=== PATIENT | female | born 1930 | race Caucasian/White ===

== ENCOUNTER 2017-01-01 17:31 | Emergency (ER) | payer OTHER, MEDICAID ==
[2017-01-01 17:44] VITALS: BMI 26.0
--- NOTE | 2017-01-01 17:51 | CT ---
History: Seizures Study: Multi party planner CT head without contrast Comparison: August 07, 2016 Findings: There is an old infarct in the left occipital lobe medially and a small old infarct program paraprofessional iorly in the left parietal lobe. There is no intracranial hemorrhage or mass. There is no subdural c ollection of fluid. There are prominent subarachnoid spaces. The calvarium is intact and the sinuses are clear. Impression: Unchanged left posterior parietal and left occipital old infarcts, no acute intracranial disease Reported By:
--- NOTE | 2017-01-01 17:59 | DR.GENAD ---
HPI - PCP Primary Care Physician: daren - Complaint/Symptoms Chief Complaint Doctors Comments: Patient with a history of facial twitches described as seizures. She began. having seizures s/p her first stroke. She is on dilantin for seizure prevention. She is on multiple antiplatelet medications. Chief Complaint:: ems stated that patient has had 5 seizures in the past 45 minutes. family states that when the patient has had seizures in the past, it has been associated with her strokes - Source History Provided: Family Member, EMS - Mode of Arrival Mode of Arrival: EMS - Timing Onset of Chief Complaint: 01/01/17 PMH - PMH Past Medical History: Yes Past Medical History: Anxiety, Arthritis, CVA, Depression, Dyslipidemia, Hypertension Past Surgical History: Yes Surgical History: Cholecystectomy - Family History History of Family Medical Conditions: Yes Family Medical History: Diabetes Mellitus, Cancer, [place], Coronary Artery Disease, Heart Failure, Hypertension - Social History Does patient currently use any type of tobacco product: Yes Have you used tobacco products in the last 12 months: Yes Type of Tobacco Use: Cigarettes Does any household member use tobacco: No Do you use any recreational Drugs:: No Lives With: Family Lives Where: Home - infectious screening In the last 2 months have you had wt loss of >10#?: NO Have you had fever, night sweats or hemotysis?: No Have you traveled outside the country in the last 6 months?: No Isolation: Standard ROS - Review of Systems Constitutional: No Symptoms Reported. negative: Diaphoresis Eyes: No Symptoms Reported ENTM: No Symptoms Reported Respiratoy: No Symptoms Reported Cardiovascular: No Symptoms Reported Gastrointestinal/Abdominal: No Symptoms Reported Genitourinary: No Symptoms Reported Neurological: No Symptoms Reported Musculoskeletal: No Symptoms Reported Integumentary: No Symptoms Reported Hematologic/Lymphatic: No Symptoms Reported Endocrine: No Symptoms Reported Psychiatric: No Symptoms Reported All Other Systems: Reviewed and Negative PE - Vital Signs Vitals: Temperature 97.8 F Pulse Rate [Right Radial] 86 Pulse Rate 84 Respiratory Rate 20 Blood Pressure [Right Arm] 179/84 Blood Pressure [Left Arm] 173/74 Blood Pressure 224/89 O2 Sat by Pulse Oximetry 98 - General Limitations: No Limitations General Appearance: Alert, In No Apparent Distress - Head Head Exam: Normal Inspection, Atraumatic - Eyes Eye exam: Normal Appearance, PERRL, EOMI - ENT ENT Exam: Normal Exam, Normal Oropharynx External Ear Exam: Normal External Inspection TM/Canal Exam: Bilateral Normal Nose Exam: Normal Nose Exam Mouth Exam: Normal Inspection Throat Exam: Normal Inspection - Neck Neck Exam: Normal Inspection - Chest Chest Inspection: Normal Inspection - Respiratory Respiratory Exam: Normal Lung Sounds Bilat Respiratory Exam: Bilateral Clear to Auscultation - Cardiovascular Cardiovascular Exam: Regular Rate, Normal Rhythm - Abdominal Exam Abdominal Exam: Normal Inspection Abdominal Tenderness: negative: RUQ, RLQ, LUQ, LLQ, Epigastrium, Suprapubic, Diffuse, Mild, Moderate, Severe, Other - Extremities Extremities Exam: Normal Inspection, Full ROM - Back Back Exam: Normal Inspection - Neurologic Neurological Exam: Alert, Oriented X3, CN II-XII Intact - Psychiatric Psychiatric Exam: Normal Affect, Normal Mood - Skin Skin Exam: Warm, Dry, Intact ROR - Labs Reviewed Result Diagrams: 01/01/17 17:45 01/01/17 17:45 Laboratory: WBC 5.7 X10^3/uL (3.6-10.0) 01/01/17 17:45 RBC 3.96 X10^6/uL (3.5-5.4) 01/01/17 17:45 Hgb 11.6 g/dL (12.0-16.0) L 01/01/17 17:45 Hct 35.5 % (36.0-47.0) L 01/01/17 17:45 MCV 89.6 fL (80.0-100.0) 01/01/17 17:45 MCH 29.2 pg (27.0-34.0) 01/01/17 17:45 MCHC 32.6 g/dL (33.0-35.0) L 01/01/17 17:45 RDW 13.4 % (11.6-16.5) 01/01/17 17:45 Plt Count 188 X10^3/uL (150.0-450.0) 01/01/17 17:45 MPV 9.0 fL (7.4-11.0) 01/01/17 17:45 Neut % 59.0 % (42.0-75.0) 01/01/17 17:45 Lymph % 27.7 % (21.0-51.0) 01/01/17 17:45 [place] % 9.8 % (0.0-13.0) 01/01/17 17:45 Eos % 2.6 % (0.9-2.9) 01/01/17 17:45 Baso % 0.9 % (0.2-1.0) 01/01/17 17:45 Neut # 3.4 x10^3/uL (2.2-4.8) 01/01/17 17:45 Lymph # 1.6 X10^3/uL (1.3-2.9) 01/01/17 17:45 [place] # 0.6 x10^3/uL (0.3-0.8) 01/01/17 17:45 Eos # 0.1 x10^3/uL (0.0-0.2) 01/01/17 17:45 Baso # 0.1 X10^3/uL (0.0-0.1) 01/01/17 17:45 Absolute Nucleated RBC 0.0 /100WBC 01/01/17 17:45 Sodium 139 mmol/L (136-145) 01/01/17 17:45 Corrected Sodium 141 mmol/L (136-145) 01/01/17 17:45 Potassium 4.5 mmol/L (3.5-5.1) 01/01/17 17:45 Chloride 105 mmol/L (98-107) 01/01/17 17:45 Carbon Dioxide 26.7 mmol/L (21-32) 01/01/17 17:45 BUN 5 mg/dL (7-18) L 01/01/17 17:45 Creatinine 0.83 mg/dL (0.55-1.02) 01/01/17 17:45 Est GFR (MDRD) Af Amer > 60 (>60) 01/01/17 17:45 Est GFR (MDRD) Non-Af > 60 (>60) 01/01/17 17:45 Glucose 171 mg/dL (65-99) H 01/01/17 17:45 Calcium 8.4 mg/dL (8.5-10.1) L 01/01/17 17:45 Corrected Calcium 9.0 mg/dL (8.5-10.1) 01/01/17 17:45 Total Bilirubin 0.20 mg/dL (0.2-1.0) 01/01/17 17:45 AST 20 Units/L (15-37) 01/01/17 17:45 ALT 21 Units/L (12-78) 01/01/17 17:45 Alkaline Phosphatase 172 Units/L (46-116) H 01/01/17 17:45 Total Protein 6.6 g/dL (6.4-8.2) 01/01/17 17:45 Albumin 3.2 g/dL (3.4-5.0) L 01/01/17 17:45 Globulin 3.4 g/dL (2.5-4.5) 01/01/17 17:45 Albumin/Globulin Ratio 0.9 Ratio (1.1-2.1) L 01/01/17 17:45 Phenytoin 11.5 ug/mL (10-20) 01/01/17 17:45 - XRAY XRAY Interpreted by: Radiologist (CT Brain: Unchanged left posterior parietal and left occipital old infarcts, no acute intracranial disease.) - Diagnosis Discharge Problem: Seizure, 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
[2017-01-01 18:10] LABS: BASOPHILS # (AUTO) 0.1 X10^3/uL (0.0-0.1); BASOPHILS % (AUTO) 0.9 % (0.2-1.0); EOSINOPHILS # (AUTO) 0.1 x10^3/uL (0.0-0.2); EOSINOPHILS % (AUTO) 2.6 % (0.9-2.9); HEMATOCRIT 35.5 % (36.0-47.0); HEMOGLOBIN 11.6 g/dL (12.0-16.0); LYMPHOCYTES # (AUTO) 1.6 X10^3/uL (1.3-2.9); LYMPHOCYTES % (AUTO) 27.7 % (21.0-51.0); MEAN CORPUSCULAR HEMOGLOBIN 29.2 pg (27.0-34.0); MEAN CORPUSCULAR HGB CONC 32.6 g/dL (33.0-35.0); MEAN CORPUSCULAR VOLUME 89.6 fL (80.0-100.0); MONOCYTES # (AUTO) 0.6 x10^3/uL (0.3-0.8); MONOCYTES % (AUTO) 9.8 % (0.0-13.0); NEUTROPHILS # (AUTO) 3.4 x10^3/uL (2.2-4.8); PLATELET COUNT 188 X10^3/uL (150.0-450.0); RED BLOOD COUNT 3.96 X10^6/uL (3.5-5.4); RED CELL DISTRIBUTION WIDTH 13.4 % (11.6-16.5); WHITE BLOOD COUNT 5.7 X10^3/uL (3.6-10.0)
[2017-01-01 18:12] LABS: ALANINE AMINOTRANSFERASE 21 Units/L (12-78); ALBUMIN 3.2 g/dL (3.4-5.0); ALKALINE PHOSPHATASE 172 Units/L (46-116); ASPARTATE AMINO TRANSFERASE 20 Units/L (15-37); BLOOD UREA NITROGEN 5 mg/dL (7-18); CALCIUM 8.4 mg/dL (8.5-10.1); CARBON DIOXIDE 26.7 mmol/L (21-32); CHLORIDE 105 mmol/L (98-107); COR NA(FOR HYPERGLY) 141 mmol/L (136-145); CREATININE 0.83 mg/dL (0.55-1.02); GLUCOSE 171 mg/dL (65-99); SODIUM 139 mmol/L (136-145); TOTAL PROTEIN 6.6 g/dL (6.4-8.2); eGFR BLACK RACES > 60 (>60); eGFR NON BLACK RACES > 60 (>60)
[2017-01-01] MEDS ORDERED: CATAPRES TAB 0.1 MG ONE (18:38)
[2017-01-01] MEDS ORDERED: CATAPRES TAB 0.1 MG PO ONE (18:39)
[2017-01-01 19:03] VITALS: BP 171/81
[2017-01-01 19:03] LABS: BILIRUBIN,URINE NEGATIVE (NEGATIVE); BLOOD/HEMOGLOBIN,URINE NEGATIVE (NEGATIVE); GLUCOSE, URINE NEGATIVE (NEGATIVE); KETONES,URINE NEGATIVE (NEGATIVE); LEUKOCYTE ESTERASE ,URINE NEGATIVE (NEGATIVE); NITRITES,URINE NEGATIVE (NEGATIVE); PROTEIN,URINE 1+ (NEGATIVE); UROBILINOGEN,URINE NORMAL (NORMAL)
[2017-01-01 19:16] LABS: AMORPHOUS SEDIMENT,UR 1+ /HPF (NEGATIVE); APPEARANCE,URINE CLEAR (CLEAR); BACTERIA,URINE TRACE /HPF (NEGATIVE); COLOR,URINE YELLOW (YELLOW); RBC,URINE 0-1 /HPF (NEGATIVE); SQUAMOUS EPITHELIAL CELL,UR RARE /HPF (NEGATIVE)
== END 2017-01-01 19:27 | disposition home or self-care (01) ==
LOC: ER 17:31
DX: R56.9 Unspecified convulsions (principal); I69.328 Other speech and language deficits following cerebral infarction
CPT/HCPCS: 36415; 70450; 80053; 80185; 81001; 85025; 99283

== ENCOUNTER 2017-05-15 01:53 | Inpatient (IN) | payer OTHER, MEDICAID ==
--- NOTE | 2017-05-15 02:22 | DR.GENAD ---
HPI - PCP Primary Care Physician: daren - HPI Comment HPI Comment: REPEATED SEIZURE IN ED WELL. TAKES DILANTIN AND DEPAKOTE AND IS COMPLIANT WITH MEDICATIONS. NO FEVER, BP NOTED TO BE GILBERTO.DENIES HEADACHE. - Complaint/Symptoms Chief Complaint Doctors Comments: SEIZURE AT HOME TONIGHT. Chief Complaint:: pt woke up and told family she thought she had a seizure, - Nurses notes reviewed Nurses Notes Review: Yes - Source History Provided: Patient - Mode of Arrival Mode of Arrival: EMS - Timing Onset of Chief Complaint: 05/15/17 Came on: Suddenly - Duration Duration: Since Onset Duration: Hours - Severity Severity: Moderate PMH - PMH Past Medical History: Yes Past Medical History: Anxiety, Arthritis, CVA, Depression, Dyslipidemia, Hypertension, Seizures Past Surgical History: Yes Surgical History: Cholecystectomy - Family History History of Family Medical Conditions: Yes Family Medical History: Diabetes Mellitus, Cancer, [place], Coronary Artery Disease, Heart Failure, Hypertension - Social History Does patient currently use any type of tobacco product: Yes Have you used tobacco products in the last 12 months: Yes Type of Tobacco Use: Cigarettes Does any household member use tobacco: Yes Alcohol Use: None Do you use any recreational Drugs:: No Lives With: Family Lives Where: Home - infectious screening In the last 2 months have you had wt loss of >10#?: NO Have you had fever, night sweats or hemotysis?: No Have you traveled outside the country in the last 6 months?: No Isolation: Standard ROS - Review of Systems Constitutional: Weakness, Fatigue Eyes: Blurred Vision ENTM: No Symptoms Reported. negative: Ear Pain, Nose Discharge, Nose Congestion , Throat Pain Respiratoy: Short of Breath. negative: Non-Productive Cough, Dry Cough, Wheezing, Hemoptysis Cardiovascular: Edema. negative: Chest Pain Gastrointestinal/Abdominal: Nausea. negative: Abdominal Pain Genitourinary: negative: Dysuria, Hematuria Neurological: Headache, Seizure Musculoskeletal: Muscle Pain Integumentary: Change in Color Hematologic/Lymphatic: Easy Bleeding, Easy Bruising Endocrine: No Symptoms Reported All Other Systems: Reviewed and Negative Unable to Obtain Due To: Altered mental status PE - Vital Signs Vitals: Temperature 98.3 F Pulse Rate [Apical] 50 Pulse Rate 67 Respiratory Rate 22 Blood Pressure [Right Arm] 202/95 Blood Pressure [Left Arm] 173/74 Blood Pressure 223/104 O2 Sat by Pulse Oximetry 100 - General Limitations: Altered Mental Status General Appearance: Alert - Head Head Exam: Normal Inspection - Eyes Eye exam: Normal Appearance - ENT ENT Exam: Normal External Ear Exam External Ear Exam: Normal External Inspection TM/Canal Exam: Bilateral Normal Nose Exam: Normal Nose Exam Mouth Exam: Normal Inspection Throat Exam: Normal Inspection - Neck Neck Exam: Trachea Midline - Chest Chest Inspection: Symmetric Chest Wall Rise - Respiratory Respiratory Exam: Normal Lung Sounds Bilat Respiratory Exam: Bilateral Rhonchi, Lower Rhonchi - Cardiovascular Cardiovascular Exam: Regular Rate, Normal Rhythm, Normal Heart Sounds - Abdominal Exam Abdominal Exam: Normal Bowel Sounds, Soft. negative: Tenderness - Extremities Extremities Exam: Normal Inspection - Back Back Exam: Paraspinal Tenderness - Neurologic Neurological Exam: Oriented X3 - Psychiatric Psychiatric Exam: Anxious - Skin Skin Exam: Normal Color MDM - Additional Information Additional Information Obtained From: Family - Differential Diagnosis Differential Diagnosis: REPEATED SEIZURE, HYPERTENSION Course - Treatment Treatment: SEE ORDERS - Education/Counseling Education/Counseling: Patient, Family, Education Educated On: Treatment, Diagnosis, Needs for Follow Up ROR - Labs Reviewed Laboratory Results Reviewed?: Yes Result Diagrams: 05/15/17 02:10 05/15/17 02:10 Laboratory: WBC 3.6 X10^3/uL (3.6-10.0) 05/15/17 02:10 RBC 3.98 X10^6/uL (3.5-5.4) 05/15/17 02:10 Hgb 11.8 g/dL (12.0-16.0) L 05/15/17 02:10 Hct 35.9 % (36.0-47.0) L 05/15/17 02:10 MCV 90.0 fL (80.0-100.0) 05/15/17 02:10 MCH 29.6 pg (27.0-34.0) 05/15/17 02:10 MCHC 32.9 g/dL (33.0-35.0) L 05/15/17 02:10 RDW 14.3 % (11.6-16.5) 05/15/17 02:10 Plt Count 144 X10^3/uL (150.0-450.0) L 05/15/17 02:10 MPV 8.9 fL (7.4-11.0) 05/15/17 02:10 Neut % 30.4 % (42.0-75.0) L 05/15/17 02:10 Lymph % 53.4 % (21.0-51.0) H 05/15/17 02:10 [place] % 10.8 % (0.0-13.0) 05/15/17 02:10 Eos % 4.2 % (0.9-2.9) H 05/15/17 02:10 Baso % 1.2 % (0.2-1.0) H 05/15/17 02:10 Neut # 1.1 x10^3/uL (2.2-4.8) L 05/15/17 02:10 Lymph # 1.9 X10^3/uL (1.3-2.9) 05/15/17 02:10 [place] # 0.4 x10^3/uL (0.3-0.8) 05/15/17 02:10 Eos # 0.2 x10^3/uL (0.0-0.2) 05/15/17 02:10 Baso # 0.0 X10^3/uL (0.0-0.1) 05/15/17 02:10 Absolute Nucleated RBC 0.0 /100WBC 05/15/17 02:10 Sodium 139 mmol/L (136-145) 05/15/17 02:10 Corrected Sodium TNP 05/15/17 02:10 Potassium 4.2 mmol/L (3.5-5.1) 05/15/17 02:10 Chloride 103 mmol/L (98-107) 05/15/17 02:10 Carbon Dioxide 30.0 mmol/L (21-32) 05/15/17 02:10 BUN 10 mg/dL (7-18) 05/15/17 02:10 Creatinine 0.88 mg/dL (0.55-1.02) 05/15/17 02:10 Est GFR (MDRD) Af Amer > 60 (>60) 05/15/17 02:10 Est GFR (MDRD) Non-Af > 60 (>60) 05/15/17 02:10 Glucose 86 mg/dL (65-99) 05/15/17 02:10 Calcium 8.3 mg/dL (8.5-10.1) L 05/15/17 02:10 Corrected Calcium TNP 05/15/17 02:10 Total Bilirubin 0.20 mg/dL (0.2-1.0) 05/15/17 02:10 AST 22 Units/L (15-37) 05/15/17 02:10 ALT 23 Units/L (12-78) 05/15/17 02:10 Alkaline Phosphatase 185 Units/L (46-116) H 05/15/17 02:10 Creatine Kinase 53 Units/L (26-192) 05/15/17 02:10 CK-MB (CK-2) 1.7 ng/mL (0-4.0) 05/15/17 02:10 CK/CKMB % Calc 3.2 % (<4) 05/15/17 02:10 Troponin I 0.03 ng/mL (0-1.5) 05/15/17 02:10 Total Protein 6.8 g/dL (6.4-8.2) 05/15/17 02:10 Albumin 3.4 g/dL (3.4-5.0) 05/15/17 02:10 Globulin 3.4 g/dL (2.5-4.5) 05/15/17 02:10 Albumin/Globulin Ratio 1.0 Ratio (1.1-2.1) L 05/15/17 02:10 Specimen Type Random urine 05/15/17 03:54 Urine Color Yellow (YELLOW) 05/15/17 03:54 Urine Appearance Clear (CLEAR) 05/15/17 03:54 Urine pH 7.0 (5.0 - 8.0) 05/15/17 03:54 Ur Specific [place] 1.010 (1.000-1.030) 05/15/17 03:54 Urine Protein 1+ (NEGATIVE) 05/15/17 03:54 Urine Glucose (UA) Negative (NEGATIVE) 05/15/17 03:54 Urine Ketones Negative (NEGATIVE) 05/15/17 03:54 Urine Occult Blood Negative (NEGATIVE) 05/15/17 03:54 Urine Nitrite Negative (NEGATIVE) 05/15/17 03:54 Urine Bilirubin Negative (NEGATIVE) 05/15/17 03:54 Urine Urobilinogen Normal (NORMAL) 05/15/17 03:54 Ur Leukocyte Esterase 1+ (NEGATIVE) 05/15/17 03:54 Urine RBC 0-3 /HPF (NEGATIVE) 05/15/17 03:54 Urine WBC 0-3 /HPF (NEGATIVE) 05/15/17 03:54 Ur Squamous Epith Cells Few /HPF (NEGATIVE) 05/15/17 03:54 Urine Bacteria Negative /HPF (NEGATIVE) 05/15/17 03:54 Ur Culture Indicated? No/not indicated 05/15/17 03:54 Phenytoin 10.5 ug/mL (10-20) 05/15/17 02:10 Valproic Acid 32.3 ug/mL (50-100) L 05/15/17 02:10 - XRAY XRAY Interpreted by: Radiologist XRAY Findings: REPORT DISCUSS WITH PATIENT. - EKG Rhythm: NSR (EKG NOTED) - Diagnosis Discharge Problem: Seizure Hypertension Qualifiers: Hypertension type: essential hypertension Qualified Code(s): I10 - Essential ( primary) hypertension - Discharge Plan Disposition: ADMITTED INPATIENT Condition: Stable - Follow ups/Referrals - Instructions
[2017-05-15 02:28] LABS: BASOPHILS % (AUTO) 1.2 % (0.2-1.0); EOSINOPHILS # (AUTO) 0.2 x10^3/uL (0.0-0.2); EOSINOPHILS % (AUTO) 4.2 % (0.9-2.9); HEMATOCRIT 35.9 % (36.0-47.0); HEMOGLOBIN 11.8 g/dL (12.0-16.0); LYMPHOCYTES # (AUTO) 1.9 X10^3/uL (1.3-2.9); LYMPHOCYTES % (AUTO) 53.4 % (21.0-51.0); MEAN CORPUSCULAR HEMOGLOBIN 29.6 pg (27.0-34.0); MEAN CORPUSCULAR HGB CONC 32.9 g/dL (33.0-35.0); MEAN PLATELET VOLUME 8.9 fL (7.4-11.0); MONOCYTES # (AUTO) 0.4 x10^3/uL (0.3-0.8); MONOCYTES % (AUTO) 10.8 % (0.0-13.0); NEUTROPHILS # (AUTO) 1.1 x10^3/uL (2.2-4.8); NEUTROPHILS % (AUTO) 30.4 % (42.0-75.0); PLATELET COUNT 144 X10^3/uL (150.0-450.0); RED BLOOD COUNT 3.98 X10^6/uL (3.5-5.4); RED CELL DISTRIBUTION WIDTH 14.3 % (11.6-16.5); WHITE BLOOD COUNT 3.6 X10^3/uL (3.6-10.0)
[2017-05-15 02:41] LABS: BLOOD UREA NITROGEN 10 mg/dL (7-18); CALCIUM 8.3 mg/dL (8.5-10.1); CHLORIDE 103 mmol/L (98-107); CREATININE 0.88 mg/dL (0.55-1.02); GLUCOSE 86 mg/dL (65-99); SODIUM 139 mmol/L (136-145); TROPONIN I 0.03 ng/mL (0-1.5); eGFR BLACK RACES > 60 (>60); eGFR NON BLACK RACES > 60 (>60)
--- NOTE | 2017-05-15 02:45 | CT ---
CT head without contrast Indication: Seizure Comparison: 01/01/2017 Technique: CT images of the head were obtained without contrast. Automatic exposure control was util ized. Findings: There is generalized age-appropriate brain atrophy with concomitant ventricular and sulcal enlargement, with scattered areas of periventricular white matter hypoattenuation, suggesting chron ic microangiopathy. Also noted is left frontoparietal and left occipital encephalomalacia consistent with remote infarcts, similar to prior. There is however a new area of encephalomalacia within the anterior inferior right frontal lobe, not present on the most recent study, suggesting chronic infar ct. There is no evidence for acute bleed, mass effect, or abnormal extra-axial collection. No acute skeletal abnormality identified. The visualized paranasal sinuses and mastoid air cells are clear. Impression: 1. No acute intracranial abnormality is identified 2. Focus of right frontal lobe encephalomalacia suggests chronic infarct, although this finding is n ew from the previous study. 3. Re-demonstration of the previously described remote left frontoparietal and occipital infarcts. C hronic white matter microangiopathy. Reported By:
[2017-05-15 02:46] LABS: ALANINE AMINOTRANSFERASE 23 Units/L (12-78); ALBUMIN 3.4 g/dL (3.4-5.0); ALKALINE PHOSPHATASE 185 Units/L (46-116); ASPARTATE AMINO TRANSFERASE 22 Units/L (15-37); CKMB % 3.2 % (<4); CREATINE KINASE 53 Units/L (26-192); CREATINE KINASE MB 1.7 ng/mL (0-4.0); TOTAL PROTEIN 6.8 g/dL (6.4-8.2)
[2017-05-15 02:56] LABS: VALPROIC ACID 32.3 ug/mL (50-100)
[2017-05-15] MEDS ORDERED: CEREBYX INJ IVP ONE (03:09)
[2017-05-15] MEDS ORDERED: DEPAKOTE D.R. TAB PO ONE ×2 (03:11→03:14)
[2017-05-15] MEDS ORDERED: CEREBYX INJ ONE (03:15)
[2017-05-15] MEDS ORDERED: CATAPRES TAB 0.1 MG PO ONE (03:56)
[2017-05-15] MEDS ORDERED: CATAPRES TAB 0.1 MG ONE (03:57)
--- NOTE | 2017-05-15 04:09 | RAD ---
Chest, one view Indication: Seizure Comparison: 08/09/2016 Findings: Mild cardiac silhouette enlargement and pulmonary vascular congestion is similar to prior. There is no overt edema, dense infiltrate, or large effusion. Impression: No acute chest process. Reported By:
[2017-05-15 04:31] LABS: BILIRUBIN,URINE NEGATIVE (NEGATIVE); BLOOD/HEMOGLOBIN,URINE NEGATIVE (NEGATIVE); GLUCOSE, URINE NEGATIVE (NEGATIVE); KETONES,URINE NEGATIVE (NEGATIVE); LEUKOCYTE ESTERASE ,URINE 1+ (NEGATIVE); NITRITES,URINE NEGATIVE (NEGATIVE); PROTEIN,URINE 1+ (NEGATIVE); UROBILINOGEN,URINE NORMAL (NORMAL)
[2017-05-15 04:46] LABS: APPEARANCE,URINE CLEAR (CLEAR); BACTERIA,URINE NEGATIVE /HPF (NEGATIVE); COLOR,URINE YELLOW (YELLOW); RBC,URINE 0-3 /HPF (NEGATIVE); SQUAMOUS EPITHELIAL CELL,UR FEW /HPF (NEGATIVE)
[2017-05-15] MEDS ORDERED: NS 1/2 1000 ML IV 1,000 ML IV ONE (05:18)
[2017-05-15] MEDS: NS 1/2 1000 ML IV 1,000 ML IV SCH (05:20)
[2017-05-15 05:47] VITALS: BMI 27.4
[2017-05-15] MEDS ORDERED: TYLENOL 325 MG TAB PO PRN (05:53)
[2017-05-15 09:55] LABS: CKMB % 3.6 % (<4); CREATINE KINASE MB 1.6 ng/mL (0-4.0); TROPONIN I 0.02 ng/mL (0-1.5)
--- NOTE | 2017-05-15 11:01 | DR.H&P ---
H&P - History & Physical for Day of: H&P Date: 05/15/17 - Chief Complaint Chief Complaint: SEIZURE ACTIVITY - Allergies Allergies/Adverse Reactions: Allergies Allergy/AdvReac Type Severity Reaction Status Date / Time promethazine [From Phenergan] AdvReac Verified 05/15/17 04:17 - History of Present Illness History of Present Illness: IS A 86 YEAR OLD PATIENT OF OURS WHO PRESENTED TO THE EMERGENCY ROOM WITH COMPLAINTS OF SEIZURE ACTIVITY AT HOME. PATIENT WAS ALSO NOTED WITH SEIZURE ACTIVITY WHILE IN ER. PATIENT REPORTED A HISTORY OF SEIZURES. SHE CURRENTLY TAKES DEPAKOTE 250MG AT BEDTIME AND DILANTIN 300MG DAILY AND IS COMPLIANT WITH MEDICATION. PATIENT REPORTED WEAKNESS, FATIGUE , SHORTNESS OF BREATH, AND HEADACHE. SHE DENIED FEVER. UPON ARRIVAL TO ER, VITALS WERE 98.3-67-22-100%-223/104. CBC WNL EXCEPT HBG 11.8, HCT 35.9. CMP WNL EXCEPT CALCIUM 8.3, ALKALINE PHOSPHATASE 185. VALPROIC ACID 32.3, PHENYTOIN 10.5. BRAIN CT WAS OBTAINED AND REPORTED FOCUS OF RIGHT FRONTAL LOBE ENCEPHALOMALACIA SUGGESTS CHRONIC INFARCT ALTHOUGH THIS FINDING IS NEW FROM PREVIOUS STUDY. EKG REPORTS SINUS RHYTHM, NONSPECIFIC INTRAVENTRICULAR CONDUCTION DELAY. CARDIAC ENZYMES WNL. PATIENT WAS GIVEN CATAPRES 0.1MG, DEPAKOTE 500MG, AND CEREBYX 250MG. BLOOD PRESSURE DECREASED TO 202/95. WE ADMITTED PATIENT FOR FURTHER TREATMENT AND EVALUATION. WE STARTED HER ON 1/2 NS AND TYLENOL 650MG PO Q6H PRN. ON MORNING OF ADMISSION, PATIENT IS ALERT AND ORIENTED IN BED WITH FAMILY AT BEDSIDE. SHE HAS COMPLAINTS OF WEAKNESS AT THIS TIME. VITALS THIS AM ARE 98.3-43-12-97%-172/54. WE WILL REVIEW HOME MEDICATIONS , ORDER A BRAIN MRI, START DEPAKOTE 250MG IN AM AND DEPAKOTE 125MG HS. WE WILL ALSO STARTE KLONOPIN 0.25MG HS. WE WILL RECHECK LABS AND FOLLOW UP WITH PATIENT IN AM. - Past Medical History Past Medical History: Anxiety, Arthritis, COPD, CVA, Depression, Dyslipidemia, GERD, Hypertension, Seizures Additional Medical History: Gall Bladder Disease, Urinary Tract Infections, Muscle Weakness, H-pylori, Osteoarthritis - Past Surgical History Surgical History: Cholecystectomy - Family History Family Medical History: Diabetes Mellitus, Cancer, [place], Coronary Artery Disease, Heart Failure, Hypertension - Social History Does patient currently use any type of tobacco product: Yes Have you used tobacco products in the last 12 months: Yes Type of Tobacco Use: Cigarettes How many years tobacco product used: 61 Does any household member use tobacco: Yes Alcohol Use: None Drug Use: None - Medications Home Medications: Divalproex Sodium [Divalproex Sodium ER (24 HR)] 1 tab PO HS 05/15/17 [History Confirmed 05/15/17] Fentanyl 50 Mcg/Hr [DURAGESIC 50 mcg/HR PATCH] 1 each TD Q72H 05/15/17 [History Confirmed 05/15/17] - Review of Systems Constitutional: See HPI, Weakness. denies: No Symptoms Reported, Fever, Chills , Sweats, Malaise, Other Eyes: Vision Change. denies: No Symptoms Reported, See HPI, Pain, Conjunctivae Inflammation, Eyelid Inflammation, Redness, Other ENT: No Symptoms Reported. denies: See HPI, Ear Pain, Ear Discharge, Nose Pain , Nose Discharge, Nose Congestion, Mouth Pain, Mouth Swelling, Throat Pain, Throat Swelling, Other Respiratory: Shortness of Breath. denies: No Symptoms Reported, See HPI, Cough , Dry, Hemoptysis, SOB with Excertion, Pleuritic Pain, Sputum, Wheezing, Other Cardiovascular: No Symptoms Reported. denies: Chest Pain, See HPI, Palpitations , Orthopnea, Paroxysmal Noc. Dyspnea, Edema, Light Headedness, Other Gastrointestinal: No Symptoms Reported. denies: See HPI, Nausea, Vomiting, Abdominal Pain, Diarrhea, Constipation, Melena, Hematochezia, Other Genitourinary: No Symptoms Reported. denies: See HPI, Dysuria, Frequency, Incontinence, Hematuria, Retention, Other Musculoskeletal: No Symptoms Reported. denies: See HPI, Shoulder Pain, Arm Pain , Back Pain, Hand Pain, Leg Pain, Foot Pain, Neck Pain, Other Skin: No Symptoms Reported. denies: See HPI, Rash, Lesions, Jaundice, Bruising , Wound, Ecchymosis, Other Neurological: See HPI, Weakness, Seizures. denies: No Symptoms Reported, Numbness, Incoordination, Change in Speech, Confusion, Other - Physical Exam Vital Signs: Temperature 98 F Pulse Rate [Apical] 53 Respiratory Rate 14 Blood Pressure [Right Arm] 167/70 O2 Sat by Pulse Oximetry 99 Oriented: Normal. negative: Time, Person, Place, Not Oriented, Unable to test, Other Eyes: Blurred Vision. negative: Normal, Diplopia, Discharge, Pain, Redness, Photophobia, Other Ear: Normal. negative: Right, Left, Swelling, Ecchymosis, Hemotypanum, Abrasion , Laceration Nose: Normal. negative: Injected, Discharge, Blood, Other Throat: Normal. negative: Tonsillar Hypertrophy, Red, Exudate, Dry, Other Respiratory: Wheezes Throughout. negative: Clear Throughout, Diminished Throughout, Rhonchi Throughout, Rales Throughout, RUL Clear, RML Clear, RLL Clear, SIVAN Clear, LML Clear, LLL Clear, RUL Diminished, RML Diminished, RLL Diminished, SIVAN Diminished, LML Diminished, LLL Diminished, RUL Absent, RML Absent, RLL Absent, SIVAN Absent, LML Absent, LLL Absent, RUL Rhonchi, RML Rhonchi , RLL Rhonchi, SIVAN Rhonchi, LML Rhonchi, LLL Rhonchi, RUL Insp. Wheeze, RML Insp. Wheeze, RLL Insp. Wheeze, SIVAN Insp.Wheeze, LML Insp.Wheeze, LLL Insp.Wheeze, RUL Exp. Wheeze, RML Exp. Wheeze, RLL Exp. Wheeze, SIVAN Exp. Wheeze , LML Exp. Wheeze, LLL Exp. Wheeze, RUL Rales, RML Rales, RLL Rales, SIVAN Rales, LML Rales, LLL Rales, RUL Rub, RML Rub, RLL Rub, SIVAN Rub, LML Rub, LLL Rub, RUL Squeak, RML Squeak, RLL Squeak, SIVAN Squeak, LML Squeak, LLL Squeak Cardiovascular: Normal. negative: Tachycardia, Bradycardia, Irregular, S3, S4, Systolic, Diastolic, Murmur, Edema, Other : Normal. negative: Dysuria, Hematuria, Frequency, Discharge, Testicular Pain , Bleeding, , Other Auscultation: Bowel Sounds: Normal. negative: Bruit, Absent, Increased, Decreased, High Pitched, Other Palpation: Normal. negative: Spleen Enlarged, Liver Enlarged, Mass Pulsatile, Other Tenderness: Normal. negative: Diffuse, RUQ, RLQ, LUQ, LLQ, Epigastric, Periumbilical, Suprapubic, Mild, Moderate, Severe, Rebound, Guarding, Rigidity, Other Skin: Normal. negative: Decreased Turgur, Rash, Papular, Macular, Maculopapular , Vesicular, Pustular, Petechial, Red, Tender, Hot, Diaphoresis, Wound, Bruising , Ecchymosis, Other Musculoskeletal: Normal. negative: Right, Left, Shoulder, Clavicle, Arm, Elbow , Forearm, Wrist, Hand, Hip, Thigh, Knee, Leg, Ankle, Foot, Back:Thoracic, Back: Lumbar, Back:Midline, Back:Paraspinous, Pelvis, Swelling, Tender, Deformity, Pulse Deficit, Motor Deficit, Sensory Deficit, Instability, Crepitance Psychiatric: Normal. negative: Anxiety, Depression, Agitation, Other Mood Description: Calm. negative: Angry, Apathetic, Depressed, Fearful, Flat, Happy, Hostile, Sad, Suspicious, Withdrawn, Anxious, Appropriate, Labile Affect: Normal. negative: Angry, Anxious, Depressed, Flat, Hysterical, Quiet, Violent Speech Pattern: Clear. negative: Appropriate, Unclear, Inappropriate, Delayed, Slurred, Excessive, Aphasic, Artificially Ventilated - Assessment/Plan (1) Seizure Status: Acute Plan: START DEPAKOTE 250MG HS, DEPAKOTE 125MG HS, DILANTIN 300MG DAILY, CHECK BRAIN MRI, CONTINUE TO MONITOR (2) Hypertension Qualifiers: Hypertension type: essential hypertension Qualified Code(s): I10 - Essential (primary) hypertension Status: Acute Plan: CONTINUE LISINOPRIL 40MG DAILY, CONTINUE TO MONITOR
[2017-05-15] MEDS ORDERED: NORCO 10/325 TAB ONE (11:30)
[2017-05-15] MEDS: DIVALPROEX SODIUM PO SCH ×2 (11:40→16:01)
[2017-05-15] MEDS: NORCO 10/325 TAB PO PRN (11:42)
[2017-05-15] MEDS ORDERED: ZESTRIL TAB 20 MG ONE (12:57)
[2017-05-15] MEDS: DEPAKOTE D.R. TAB PO SCH (13:23)
[2017-05-15] MEDS: ASPIRIN PO SCH (13:23)
[2017-05-15] MEDS: XARELTO PO SCH (13:23)
[2017-05-15] MEDS: PLAVIX PO SCH (13:25)
[2017-05-15] MEDS: ZESTRIL TAB 20 MG PO SCH (13:25)
[2017-05-15] MEDS: CHECK PATCH XX SCH ×2 (13:40→22:19)
--- NOTE | 2017-05-15 13:47 | MRI ---
HISTORY: Seizures. Study: MRI brain with and without contrast. Comparison: CT head dated May 15, 2017 and MRI brain dated August 08, 2016. Technique: Multiplanar multi-sequence MRI of the brain was obtained. Sagittal T1, axial T1, axial T 2, axial flair images, coronal T1, sagittal T1 post contrast, coronal T1 postcontrast, axial T1 post contrast images were obtained. Findings: Age related cortical atrophy and chronic small vessel ischemic changes. Remote left frontal parietal , left occipital , and right frontal infarcts with associated encephalomalacia . The midline structu res appear intact. The posterior fossa is unremarkable. No evidence for intraparenchymal hemorrhage or mass can be identified. No extra-axial fluid collections or subarachnoid hematoma can be seen. Evaluation of the diffusion weighted images demonstrates no evidence for acute ischemic change. Th e cerebral pontine angle is normal in its contour without evidence for mass. The ventricular system appears symmetric and nondilated. Mild mucosal thickening of the visualized paranasal sinuses. Nons pecific free fluid is seen within the right mastoid air cells. Left mastoid air cells are clear. Postcontrast enhancement demonstrates no evidence for an enhancing lesion such as mass or vascular m alformation. IMPRESSION: 1. Unremarkable MRI of the brain with and without contrast. 2. Other chronic findings as above. Reported By:
[2017-05-15 15:28] LABS: CKMB % 3.2 % (<4); CREATINE KINASE MB 1.6 ng/mL (0-4.0); TROPONIN I 0.09 ng/mL (0-1.5)
[2017-05-15] MEDS ORDERED: ROSUVASTATIN CALCIUM 40 MG PO SCH (21:00)
[2017-05-15] MEDS: RESTORIL CAP 15 MG PO PRN (21:06)
[2017-05-15] MEDS: DEPAKOTE SPRINKLE PO SCH (21:06)
[2017-05-15] MEDS: KLONOPIN TAB 0.5 MG PO SCH (21:06)
[2017-05-15] MEDS: CRESTOR TAB 10 MG PO SCH (21:07)
[2017-05-16 05:22] LABS: ALANINE AMINOTRANSFERASE 19 Units/L (12-78); ALBUMIN 2.8 g/dL (3.4-5.0); ALKALINE PHOSPHATASE 138 Units/L (46-116); ASPARTATE AMINO TRANSFERASE 17 Units/L (15-37); BLOOD UREA NITROGEN 14 mg/dL (7-18); CALCIUM 7.4 mg/dL (8.5-10.1); CARBON DIOXIDE 28.2 mmol/L (21-32); CHLORIDE 106 mmol/L (98-107); COR CA(FOR HYPOALB) 8.4 mg/dL (8.5-10.1); CREATININE 0.92 mg/dL (0.55-1.02); GLUCOSE 72 mg/dL (65-99); SODIUM 139 mmol/L (136-145); TOTAL PROTEIN 5.5 g/dL (6.4-8.2); eGFR BLACK RACES > 60 (>60); eGFR NON BLACK RACES > 60 (>60)
[2017-05-16 06:04] LABS: BASOPHILS # (AUTO) 0.1 X10^3/uL (0.0-0.1); EOSINOPHILS # (AUTO) 0.2 x10^3/uL (0.0-0.2); EOSINOPHILS % (AUTO) 5.9 % (0.9-2.9); HEMATOCRIT 29.2 % (36.0-47.0); HEMOGLOBIN 9.9 g/dL (12.0-16.0); LYMPHOCYTES # (AUTO) 1.9 X10^3/uL (1.3-2.9); LYMPHOCYTES % (AUTO) 52.6 % (21.0-51.0); MEAN CORPUSCULAR HEMOGLOBIN 30.5 pg (27.0-34.0); MEAN CORPUSCULAR VOLUME 89.7 fL (80.0-100.0); MEAN PLATELET VOLUME 9.1 fL (7.4-11.0); MONOCYTES # (AUTO) 0.4 x10^3/uL (0.3-0.8); MONOCYTES % (AUTO) 11.5 % (0.0-13.0); PLATELET COUNT 123 X10^3/uL (150.0-450.0); RED BLOOD COUNT 3.26 X10^6/uL (3.5-5.4); RED CELL DISTRIBUTION WIDTH 14.2 % (11.6-16.5); WHITE BLOOD COUNT 3.5 X10^3/uL (3.6-10.0)
[2017-05-16] MEDS ORDERED: NS 1/2 1000 ML IV 1,000 ML IV ONE (06:09)
[2017-05-16] MEDS: NS 1/2 1000 ML IV 1,000 ML IV SCH (06:09)
[2017-05-16] MEDS ORDERED: ZESTRIL TAB 20 MG ONE ×2 (07:15→19:59)
[2017-05-16] MEDS: ZESTRIL TAB 20 MG PO SCH ×2 (08:17→20:04)
[2017-05-16] MEDS: ASPIRIN PO SCH (08:17)
[2017-05-16] MEDS: XARELTO PO SCH (08:17)
[2017-05-16] MEDS: PLAVIX PO SCH (08:17)
[2017-05-16] MEDS: DEPAKOTE D.R. TAB PO SCH (08:18)
[2017-05-16] MEDS: CHECK PATCH XX SCH ×2 (08:20→20:13)
[2017-05-16] MEDS: DILANTIN CAP 100 MG EXT REL PO SCH (08:20)
[2017-05-16] MEDS ORDERED: XARELTO PO SCH (09:32)
--- NOTE | 2017-05-16 09:52 | PCM.PROG ---
Progress Note - Progress Note for Day of Date: 05/16/17 - Subjective Subjective: IS ALERT AND ORIENTED THIS AM ON MORNING ROUNDS. SHE IS IN BED WITH FAMILY AT BEDSIDE. SHE HAS NO COMPLAINTS THIS AM AND REPORTS FEELING WELL. SHE DENIES SEIZURE ACTIVITY SINCE ADMISSION. VITALS THIS AM ARE 98.1-71-24 -100%-136/50. CBC WNL EXCEPT WBC 3.5, RBC 3.26, HGB 9.9,HCT 29.2. CMP WNL EXCEPT CALCIUM 8.4, ALKALINE PHOSPHATASE 138, TOTAL PROTEIN 5.5, ALBUMIN 2.8. WE OBTAINED A BRAIN MRI. IT REPORTED REMOTE LEFT FRONTAL PARIETAL, LEFT OCCIPITAL, AND RIGHT FRONTAL INFARCTS WITH ASSOCIATED ENCEPHALOMALACIA. WE WILL START AMLODIPINE 2.5MG DAILY, INCREASE XARELTO TO 20MG DAILY, AND CHANGE LISINOPRIL TO 20MG BID. WE WILL RECHECK LABS AND PLAN TO DISCHARGE PATIENT IN AM IF STABLE. - Past Medical Family Social History Past Med/Fam/Surg Hx: No changes since H&P Allergies: Allergies promethazine [From Phenergan] Adverse Reaction (Verified 05/15/17 04:17) - Review of Systems ROS: No change since H&P - Vital Signs and I&O's Vital Signs: Temperature 98.1 F Pulse Rate [Apical] 71 Respiratory Rate 24 Blood Pressure [Right Arm] 136/50 O2 Sat by Pulse Oximetry 100 Intake and Output: Intake & Output 05/13/17 05/14/17 05/15/17 05/16/17 11:59 11:59 11:59 11:59 Intake Total 836 Output Total 90 Balance 746 - Physical Exam Oriented: Normal. negative: Time, Person, Place, Not Oriented, Unable to test, Other Eyes: Blurred Vision. negative: Normal, Diplopia, Discharge, Pain, Redness, Photophobia, Other Ear: Normal. negative: Right, Left, Swelling, Ecchymosis, Hemotypanum, Abrasion , Laceration Nose: Normal. negative: Injected, Discharge, Blood, Other Throat: Normal. negative: Tonsillar Hypertrophy, Red, Exudate, Dry, Other Respiratory: Normal Cardiovascular: Normal. negative: Tachycardia, Bradycardia, Irregular, S3, S4, Systolic, Diastolic, Murmur, Edema, Other : Normal. negative: Dysuria, Hematuria, Frequency, Discharge, Testicular Pain , Bleeding, , Other Auscultation: Bowel Sounds: Normal. negative: Bruit, Absent, Increased, Decreased, High Pitched, Other Palpation: Normal Tenderness: Normal. negative: Diffuse, RUQ, RLQ, LUQ, LLQ, Epigastric, Periumbilical, Suprapubic, Mild, Moderate, Severe, Rebound, Guarding, Rigidity, Other Skin: Normal. negative: Decreased Turgur, Rash, Papular, Macular, Maculopapular , Vesicular, Pustular, Petechial, Red, Tender, Hot, Diaphoresis, Wound, Bruising , Ecchymosis, Other Musculoskeletal: Normal. negative: Right, Left, Shoulder, Clavicle, Arm, Elbow , Forearm, Wrist, Hand, Hip, Thigh, Knee, Leg, Ankle, Foot, Back:Thoracic, Back: Lumbar, Back:Midline, Back:Paraspinous, Pelvis, Swelling, Tender, Deformity, Pulse Deficit, Motor Deficit, Sensory Deficit, Instability, Crepitance Psychiatric: Normal. negative: Anxiety, Depression, Agitation, Other Mood Description: Calm Affect: Normal. negative: Angry, Anxious, Depressed, Flat, Hysterical, Quiet, Violent Speech Pattern: Clear, Appropriate - Laboratory and Diagnostics Result Diagrams: 05/16/17 04:45 05/16/17 04:45 Labs: Laboratory WBC 3.5 X10^3/uL (3.6-10.0) L 05/16/17 04:45 RBC 3.26 X10^6/uL (3.5-5.4) L 05/16/17 04:45 Hgb 9.9 g/dL (12.0-16.0) L 05/16/17 04:45 Hct 29.2 % (36.0-47.0) L 05/16/17 04:45 MCV 89.7 fL (80.0-100.0) 05/16/17 04:45 MCH 30.5 pg (27.0-34.0) 05/16/17 04:45 MCHC 34.0 g/dL (33.0-35.0) 05/16/17 04:45 RDW 14.2 % (11.6-16.5) 05/16/17 04:45 Plt Count 123 X10^3/uL (150.0-450.0) L 05/16/17 04:45 MPV 9.1 fL (7.4-11.0) 05/16/17 04:45 Neut % 28.0 % (42.0-75.0) L 05/16/17 04:45 Lymph % 52.6 % (21.0-51.0) H 05/16/17 04:45 [place] % 11.5 % (0.0-13.0) 05/16/17 04:45 Eos % 5.9 % (0.9-2.9) H 05/16/17 04:45 Baso % 2.0 % (0.2-1.0) H 05/16/17 04:45 Neut # 1.0 x10^3/uL (2.2-4.8) L 05/16/17 04:45 Lymph # 1.9 X10^3/uL (1.3-2.9) 05/16/17 04:45 [place] # 0.4 x10^3/uL (0.3-0.8) 05/16/17 04:45 Eos # 0.2 x10^3/uL (0.0-0.2) 05/16/17 04:45 Baso # 0.1 X10^3/uL (0.0-0.1) 05/16/17 04:45 Absolute Nucleated RBC 0.2 /100WBC 05/16/17 04:45 INR Target Range - 05/15/17 05:05 INR 1.02 (0.8-1.3) 05/15/17 05:05 PTT 26.2 SECONDS (22.9-36.5) 05/15/17 05:05 PTT Comment - 05/15/17 05:05 Sodium 139 mmol/L (136-145) 05/16/17 04:45 Corrected Sodium TNP 05/16/17 04:45 Potassium 4.8 mmol/L (3.5-5.1) 05/16/17 04:45 Chloride 106 mmol/L (98-107) 05/16/17 04:45 Carbon Dioxide 28.2 mmol/L (21-32) 05/16/17 04:45 BUN 14 mg/dL (7-18) 05/16/17 04:45 Creatinine 0.92 mg/dL (0.55-1.02) 05/16/17 04:45 Est GFR (MDRD) Af Amer > 60 (>60) 05/16/17 04:45 Est GFR (MDRD) Non-Af > 60 (>60) 05/16/17 04:45 Glucose 72 mg/dL (65-99) 05/16/17 04:45 Calcium 7.4 mg/dL (8.5-10.1) L 05/16/17 04:45 Corrected Calcium 8.4 mg/dL (8.5-10.1) L 05/16/17 04:45 Magnesium 1.8 mg/dL (1.7-2.9) 05/15/17 05:05 Total Bilirubin 0.20 mg/dL (0.2-1.0) 05/16/17 04:45 AST 17 Units/L (15-37) 05/16/17 04:45 ALT 19 Units/L (12-78) 05/16/17 04:45 Alkaline Phosphatase 138 Units/L (46-116) H 05/16/17 04:45 Creatine Kinase 50 Units/L (26-192) 05/15/17 14:00 CK-MB (CK-2) 1.6 ng/mL (0-4.0) 05/15/17 14:00 CK/CKMB % Calc 3.2 % (<4) 05/15/17 14:00 Troponin I 0.09 ng/mL (0-1.5) 05/15/17 14:00 Total Protein 5.5 g/dL (6.4-8.2) L 05/16/17 04:45 Albumin 2.8 g/dL (3.4-5.0) L 05/16/17 04:45 Globulin 2.7 g/dL (2.5-4.5) 05/16/17 04:45 Albumin/Globulin Ratio 1.0 Ratio (1.1-2.1) L 05/16/17 04:45 Specimen Type Random urine 05/15/17 03:54 Urine Color Yellow (YELLOW) 05/15/17 03:54 Urine Appearance Clear (CLEAR) 05/15/17 03:54 Urine pH 7.0 (5.0 - 8.0) 05/15/17 03:54 Ur Specific [place] 1.010 (1.000-1.030) 05/15/17 03:54 Urine Protein 1+ (NEGATIVE) 05/15/17 03:54 Urine Glucose (UA) Negative (NEGATIVE) 05/15/17 03:54 Urine Ketones Negative (NEGATIVE) 05/15/17 03:54 Urine Occult Blood Negative (NEGATIVE) 05/15/17 03:54 Urine Nitrite Negative (NEGATIVE) 05/15/17 03:54 Urine Bilirubin Negative (NEGATIVE) 05/15/17 03:54 Urine Urobilinogen Normal (NORMAL) 05/15/17 03:54 Ur Leukocyte Esterase 1+ (NEGATIVE) 05/15/17 03:54 Urine RBC 0-3 /HPF (NEGATIVE) 05/15/17 03:54 Urine WBC 0-3 /HPF (NEGATIVE) 05/15/17 03:54 Ur Squamous Epith Cells Few /HPF (NEGATIVE) 05/15/17 03:54 Urine Bacteria Negative /HPF (NEGATIVE) 05/15/17 03:54 Ur Culture Indicated? No/not indicated 05/15/17 03:54 Phenytoin 10.5 ug/mL (10-20) 05/15/17 02:10 Valproic Acid 32.3 ug/mL (50-100) L 05/15/17 02:10 - Plan (1) Seizure Status: Acute Plan: START DEPAKOTE 250MG HS, DEPAKOTE 125MG HS, DILANTIN 300MG DAILY, CHECK BRAIN MRI, CONTINUE TO MONITOR (2) Hypertension Status: Acute Qualifiers: Hypertension type: essential hypertension Qualified Code(s): I10 - Essential (primary) hypertension Plan: START LISINOPRIL 20MG BID, START AMLODIPINE 2.5MG DAILY, CONTINUE TO MONITOR (3) CVA (cerebral vascular accident) Status: Acute Qualifiers: CVA mechanism: unspecified Precerebral and cerebral artery: P Laterality of affected vessel: L Qualified Code(s): I63.9 - Cerebral infarction, unspecified Plan: XARELTO 20MG DAILY, PLAVIX 75MG DAILY, ASA 325MG DAILY, CONTINUE CRESTOR 40MG DAILY, CONTINUE TO MONITOR (4) Hyperlipidemia Status: Chronic Qualifiers: Hyperlipidemia type: mixed hyperlipidemia Qualified Code(s): E78.2 - Mixed hyperlipidemia Plan: CONTINUE CRESTOR 40MG DAILY, CONTINUE TO MONITOR
[2017-05-16] MEDS ORDERED: NORVASC TAB 2.5 MG ONE (11:38)
[2017-05-16] MEDS ORDERED: BUTT CREAM (COMPOUND) ONE (11:54)
[2017-05-16] MEDS ORDERED: BUTT CREAM (COMPOUND) TOP PRN (11:58)
[2017-05-16] MEDS: NORVASC TAB 2.5 MG PO SCH (11:58)
[2017-05-16] MEDS: RESTORIL CAP 15 MG PO PRN (20:04)
[2017-05-16] MEDS: CRESTOR TAB 10 MG PO SCH (20:04)
[2017-05-16] MEDS: DEPAKOTE SPRINKLE PO SCH (20:04)
[2017-05-16] MEDS: KLONOPIN TAB 0.5 MG PO SCH (20:05)
[2017-05-16] MEDS: NORCO 10/325 TAB PO PRN (22:22)
[2017-05-17] MEDS: NS 1/2 1000 ML IV 1,000 ML IV SCH (04:31)
[2017-05-17 06:14] LABS: BASOPHILS % (AUTO) 1.3 % (0.2-1.0); EOSINOPHILS # (AUTO) 0.2 x10^3/uL (0.0-0.2); EOSINOPHILS % (AUTO) 5.4 % (0.9-2.9); HEMATOCRIT 29.4 % (36.0-47.0); HEMOGLOBIN 9.9 g/dL (12.0-16.0); LYMPHOCYTES # (AUTO) 1.6 X10^3/uL (1.3-2.9); LYMPHOCYTES % (AUTO) 44.3 % (21.0-51.0); MEAN CORPUSCULAR HEMOGLOBIN 30.2 pg (27.0-34.0); MEAN CORPUSCULAR HGB CONC 33.5 g/dL (33.0-35.0); MEAN CORPUSCULAR VOLUME 90.2 fL (80.0-100.0); MEAN PLATELET VOLUME 9.5 fL (7.4-11.0); MONOCYTES # (AUTO) 0.5 x10^3/uL (0.3-0.8); NEUTROPHILS # (AUTO) 1.2 x10^3/uL (2.2-4.8); PLATELET COUNT 116 X10^3/uL (150.0-450.0); RED BLOOD COUNT 3.26 X10^6/uL (3.5-5.4); RED CELL DISTRIBUTION WIDTH 14.2 % (11.6-16.5); WHITE BLOOD COUNT 3.6 X10^3/uL (3.6-10.0)
[2017-05-17 06:20] LABS: ALANINE AMINOTRANSFERASE 18 Units/L (12-78); ALBUMIN 2.7 g/dL (3.4-5.0); ALKALINE PHOSPHATASE 139 Units/L (46-116); ASPARTATE AMINO TRANSFERASE 16 Units/L (15-37); BLOOD UREA NITROGEN 15 mg/dL (7-18); CALCIUM 7.6 mg/dL (8.5-10.1); CARBON DIOXIDE 29.9 mmol/L (21-32); CHLORIDE 104 mmol/L (98-107); COR CA(FOR HYPOALB) 8.6 mg/dL (8.5-10.1); CREATININE 0.87 mg/dL (0.55-1.02); GLUCOSE 75 mg/dL (65-99); SODIUM 139 mmol/L (136-145); TOTAL PROTEIN 5.4 g/dL (6.4-8.2); eGFR BLACK RACES > 60 (>60); eGFR NON BLACK RACES > 60 (>60)
[2017-05-17] MEDS ORDERED: ZESTRIL TAB 20 MG ONE (08:43)
[2017-05-17] MEDS ORDERED: NORVASC TAB 2.5 MG ONE (08:43)
[2017-05-17] MEDS: DILANTIN CAP 100 MG EXT REL PO SCH (08:56)
[2017-05-17] MEDS: NORVASC TAB 2.5 MG PO SCH (08:57)
[2017-05-17] MEDS: ASPIRIN PO SCH (08:57)
[2017-05-17] MEDS: DEPAKOTE D.R. TAB PO SCH (08:57)
[2017-05-17] MEDS: ZESTRIL TAB 20 MG PO SCH (08:58)
[2017-05-17] MEDS: PLAVIX PO SCH (09:07)
[2017-05-17] MEDS: CHECK PATCH XX SCH (09:17)
[2017-05-17 09:54] VITALS: BP 149/59
== END 2017-05-17 11:10 | disposition home or self-care (01) | DRG 100 ==
LOC: ER 01:53 → ICU 04:14
PROVIDERS: ADMIT Internal Medicine; ATTEND Internal Medicine
DX: G40.802 Other epilepsy, not intractable, without status epilepticus (principal); F41.8 Other specified anxiety disorders; M13.89 Other specified arthritis, multiple sites; E78.2 Mixed hyperlipidemia; I10 Essential (primary) hypertension; R06.02 Shortness of breath; R53.83 Other fatigue; R53.1 Weakness; G93.89 Other specified disorders of brain; I63.8 Other cerebral infarction; R26.89 Other abnormalities of gait and mobility
CPT/HCPCS: 36415; 70450; 70553; 71010; 80053; 80164; 80185; 81001; 82550; 82553; 83735; 84484; 85025; 85576; 85610; 85730; 93005; 96365; 96374; 99284; A4216; A4222; Q2009

== ENCOUNTER 2017-06-19 17:22 | Observation (INO) | payer OTHER, MEDICAID ==
--- NOTE | 2017-06-19 17:38 | DR.AMS ---
HPI - Time Seen Time seen: 17:35 - HPI Comment HPI Comment: PATIENT COMPLAINIG OF WEAKNESS AND DIZZINESS. KNOWN SEIZURE PATIENT ON DEPAKOTE. AND 3 SEIZURES 2 DAYS AGO. NO FEVER. - Complaint Cheif Complaint Doctors Comments: FELL AT HOME TODAY AT 02:OO AM. INCREASING AMS AND CONFUSION. NO FEVER. SOME HEADACHE REPORTED. - Reviewed Nurses Notes Reviewed: Yes - Source History Provided: Patient, Family Member, EMS - Mode of Arrival Mode of Arrival: Stretcher - Timing Came On: Suddenly Symptoms: Unchanged - Duration Duration: Constant Duration: Hours - Quality Quality: Decreased Alertness, Change in Behavior, Confusion - Severity Severity: Moderate - Context Recent: Trauma History Of: CVA, Dementia, Seizure - Associated Signs and Symptoms Associated Signs and Symptoms: Generalized Weakness PMH - PMH Past Medical History: Anxiety, Arthritis, COPD, CVA, Depression, Dyslipidemia, GERD, Hypertension, Seizures Past Surgical History: Yes Surgical History: Cholecystectomy - Family History Family Medical History: Diabetes Mellitus, Cancer, [place], Coronary Artery Disease, Heart Failure, Hypertension - Social History Do you use any recreational Drugs:: No ROS - Review of Systems Constitutional: Weakness, Fatigue, Loss of Appetite. negative: Chills, Fever Eyes: negative: Eye Pain, Discharge ENTM: No Symptoms Reported. negative: Ear Pain, Nose Discharge, Nose Congestion , Throat Pain Respiratoy: Non-Productive Cough, Short of Breath, Wheezing. negative: Hemoptysis Cardiovascular: Chest Pain, Edema, Syncope (NEAR SYNCOPE) Gastrointestinal/Abdominal: negative: Abdominal Pain, Diarrhea, Nausea, Vomiting Genitourinary: negative: Dysuria, Frequency, Hematuria Neurological: Headache, Seizure, Weakness, Dizziness, Problems Walking (CHRONIC) Musculoskeletal: Back Pain, Back, Knee Integumentary: Change in Color, Dryness, Other (EDEMA LEGS) Hematologic/Lymphatic: Easy Bleeding, Easy Bruising Endocrine: No Symptoms Reported All Other Systems: Reviewed and Negative Unable to Obtain Due To: Altered mental status PE - Vitals Vital Signs: Temp Pulse Resp BP BP BP Pulse Ox 06/19/17 17:28 96.9 F L 66 21 118/58 95 05/17/17 09:00 149/59 149/59 10/14/14 08:00 173/74 - General Limitations: Altered Mental Status General Appearance: Alert, In Distress - Head Head Exam: Normal Inspection, Atraumatic, Normocephalic Head Exam Physical: Other (NONE) - Eyes Eye exam: Normal Appearance, PERRL, EOMI. negative: Scleral Icterus, Conjunctival Injection, Periorbital Swelling, Periorbital Tenderness Pupils: Regular, Round: Bilateral, Reactive: Bilateral - ENT ENT Exam: Normal External Ear Exam External Ear Exam: Normal External Inspection TM/Canal Exam: Bilateral Normal Nose Exam: Normal Nose Exam Mouth Exam: Normal Inspection Throat Exam: Normal Inspection - Neck Neck Exam: Trachea Midline - Chest Chest Inspection: Symmetric Chest Wall Rise - Respiratory Respiratory Exam: Normal Lung Sounds Bilat Respiratory Exam: Bilateral Clear to Auscultation, Bilateral Wheezing, Bilateral Rhonchi, Upper Rhonchi, Lower Wheezing, Lower Rhonchi - Cardiovascular Cardiovascular Exam: Regular Rate, Normal Rhythm, Normal Heart Sounds - Abdominal Exam Abdominal Exam: Normal Bowel Sounds, Soft. negative: Tenderness - Extremities Extremities Exam: Edema, Joint Swelling (KNEES SWELLING.) - Back Back Exam: Paraspinal Tenderness (LOWER BACK) - Neurological Neurological Exam: Alert, Oriented X3 Patient Oriented To: Person, Place Speech: Fluid Speech Cranial Nerve Exam: EOM Function (II, III, IV, ): Normal, Facial Sensation (V) : Normal, Facial Palsy (VII): Normal, Gag reflex (XI): Normal, Tongue Deviation : Normal Motor Strength - LUE: 4/5 Motor Strength - RUE: 4/5 Motor Strength - LLE: 4/5 Motor Strength - RLE: 4/5 Upper Motor Neuron Exam: Babinski Sign: Left Positive Sensory Exam Upper Extremity: Light Touch: Normal DTR: achilles tendon (L): 4+, achilles tendon (R): 4+, brachioradialis (L): 4+, brachioradialis (R): 4+ - Psychological Psychiatric Exam: Normal Affect - Skin Skin Exam: Erythema MDM - Additional Information Obtained Additional Information Obtained From: Family - Differential Diagnosis Metabolic: Dehydration, Hypercalcemia, Hypernatremia, Hypoglycemia, Hyponatremia , Hypoxemia, Post-ictal Structural: Closed Head Injury, CVA, Mass Lesion Infectious: UTI Environmental: Hyperthermia Course - Treatment Treatment: SEE ORDERS. - Education/Counseling Education/Counseling: Patient, Family, Education Educated On: Diagnosis, Needs for Follow Up ROR - Labs Reviewed Laboratory Results Reviewed?: Yes Result Diagrams: 06/20/17 04:50 06/20/17 04:50 Laboratory: WBC 3.6 X10^3/uL (3.6-10.0) 06/20/17 04:50 RBC 2.75 X10^6/uL (3.5-5.4) L 06/20/17 04:50 Hgb 8.5 g/dL (12.0-16.0) L 06/20/17 04:50 Hct 24.7 % (36.0-47.0) L 06/20/17 04:50 MCV 89.7 fL (80.0-100.0) 06/20/17 04:50 MCH 31.0 pg (27.0-34.0) 06/20/17 04:50 MCHC 34.5 g/dL (33.0-35.0) 06/20/17 04:50 RDW 14.4 % (11.6-16.5) 06/20/17 04:50 Plt Count 165 X10^3/uL (150.0-450.0) 06/20/17 04:50 MPV 8.3 fL (7.4-11.0) 06/20/17 04:50 Neut % 41.7 % (42.0-75.0) L 06/20/17 04:50 Lymph % 33.6 % (21.0-51.0) 06/20/17 04:50 [place] % 18.9 % (0.0-13.0) H 06/20/17 04:50 Eos % 4.5 % (0.9-2.9) H 06/20/17 04:50 Baso % 1.3 % (0.2-1.0) H 06/20/17 04:50 Neut # 1.5 x10^3/uL (2.2-4.8) L 06/20/17 04:50 Lymph # 1.2 X10^3/uL (1.3-2.9) L 06/20/17 04:50 [place] # 0.7 x10^3/uL (0.3-0.8) 06/20/17 04:50 Eos # 0.2 x10^3/uL (0.0-0.2) 06/20/17 04:50 Baso # 0.0 X10^3/uL (0.0-0.1) 06/20/17 04:50 Absolute Nucleated RBC 0.0 /100WBC 06/20/17 04:50 INR Target Range - 06/20/17 04:50 INR 1.08 (0.8-1.3) 06/20/17 04:50 PTT 28.3 SECONDS (22.9-36.5) 06/20/17 04:50 PTT Comment - 06/20/17 04:50 Sodium 140 mmol/L (136-145) 06/20/17 04:50 Corrected Sodium TNP 06/20/17 04:50 Potassium 4.0 mmol/L (3.5-5.1) 06/20/17 04:50 Chloride 106 mmol/L (98-107) 06/20/17 04:50 Carbon Dioxide 28.6 mmol/L (21-32) 06/20/17 04:50 BUN 12 mg/dL (7-18) 06/20/17 04:50 Creatinine 0.78 mg/dL (0.55-1.02) 06/20/17 04:50 Est GFR (MDRD) Af Amer > 60 (>60) 06/20/17 04:50 Est GFR (MDRD) Non-Af > 60 (>60) 06/20/17 04:50 Glucose 90 mg/dL (65-99) 06/20/17 04:50 Calcium 7.9 mg/dL (8.5-10.1) L 06/20/17 04:50 Corrected Calcium 9.1 mg/dL (8.5-10.1) 06/20/17 04:50 Magnesium 1.8 mg/dL (1.7-2.9) 06/20/17 04:50 Total Bilirubin 0.20 mg/dL (0.2-1.0) 06/20/17 04:50 AST 26 Units/L (15-37) 06/20/17 04:50 ALT 26 Units/L (12-78) 06/20/17 04:50 Alkaline Phosphatase 166 Units/L (46-116) H 06/20/17 04:50 Creatine Kinase 46 Units/L (26-192) 06/20/17 04:50 CK-MB (CK-2) < 1.0 ng/mL (0-4.0) 06/20/17 04:50 CK/CKMB % Calc 2.2 % (<4) 06/20/17 04:50 Troponin I 0.03 ng/mL (0-1.5) 06/20/17 04:50 Total Protein 5.4 g/dL (6.4-8.2) L 06/20/17 04:50 Albumin 2.5 g/dL (3.4-5.0) L 06/20/17 04:50 Globulin 2.9 g/dL (2.5-4.5) 06/20/17 04:50 Albumin/Globulin Ratio 0.9 Ratio (1.1-2.1) L 06/20/17 04:50 Specimen Type Clean catch urine 06/19/17 21:45 Urine Color Yellow (YELLOW) 06/19/17 21:45 Urine Appearance Clear (CLEAR) 06/19/17 21:45 Urine pH 6.5 (5.0 - 8.0) 06/19/17 21:45 Ur Specific [place] 1.010 (1.000-1.030) 06/19/17 21:45 Urine Protein 1+ (NEGATIVE) 06/19/17 21:45 Urine Glucose (UA) Negative (NEGATIVE) 06/19/17 21:45 Urine Ketones Negative (NEGATIVE) 06/19/17 21:45 Urine Occult Blood Negative (NEGATIVE) 06/19/17 21:45 Urine Nitrite Negative (NEGATIVE) 06/19/17 21:45 Urine Bilirubin Negative (NEGATIVE) 06/19/17 21:45 Urine Urobilinogen 1+ (NORMAL) 06/19/17 21:45 Ur Leukocyte Esterase 2+ (NEGATIVE) 06/19/17 21:45 Urine RBC 0-3 /HPF (NEGATIVE) 06/19/17 21:45 Urine WBC 2-6 /HPF (NEGATIVE) 06/19/17 21:45 Ur Squamous Epith Cells Few /HPF (NEGATIVE) 06/19/17 21:45 Urine Bacteria Negative /HPF (NEGATIVE) 06/19/17 21:45 Ur Culture Indicated? No/not indicated 06/19/17 21:45 Valproic Acid 36.0 ug/mL (50-100) L 06/19/17 17:43 - XRAY XRAY Findings: REPORT DISCUSS WITH PATIENT. - EKG Rhythm: NSR (EKG NOTED) - Diagnosis Discharge Problem: Generalized weakness, Seizure Mental status alteration Qualifiers: Altered mental status type: transient alteration of awareness Qualified Code(s) : R40.4 - Transient alteration of awareness - Discharge Plan Disposition: 09 ADMITTED INPATIENT Condition: Stable - Follow ups/Referrals - Instructions
[2017-06-19 17:54] LABS: BASOPHILS % (AUTO) 1.3 % (0.2-1.0); EOSINOPHILS # (AUTO) 0.1 x10^3/uL (0.0-0.2); EOSINOPHILS % (AUTO) 2.8 % (0.9-2.9); HEMATOCRIT 28.3 % (36.0-47.0); HEMOGLOBIN 9.7 g/dL (12.0-16.0); LYMPHOCYTES % (AUTO) 28.8 % (21.0-51.0); MEAN CORPUSCULAR HEMOGLOBIN 30.8 pg (27.0-34.0); MEAN CORPUSCULAR HGB CONC 34.2 g/dL (33.0-35.0); MEAN CORPUSCULAR VOLUME 90.1 fL (80.0-100.0); MEAN PLATELET VOLUME 7.8 fL (7.4-11.0); MONOCYTES # (AUTO) 0.5 x10^3/uL (0.3-0.8); MONOCYTES % (AUTO) 13.4 % (0.0-13.0); NEUTROPHILS # (AUTO) 1.9 x10^3/uL (2.2-4.8); NEUTROPHILS % (AUTO) 53.7 % (42.0-75.0); PLATELET COUNT 186 X10^3/uL (150.0-450.0); RED BLOOD COUNT 3.14 X10^6/uL (3.5-5.4); RED CELL DISTRIBUTION WIDTH 14.4 % (11.6-16.5); WHITE BLOOD COUNT 3.5 X10^3/uL (3.6-10.0)
[2017-06-19 18:09] LABS: BLOOD UREA NITROGEN 12 mg/dL (7-18); CALCIUM 8.3 mg/dL (8.5-10.1); CARBON DIOXIDE 29.4 mmol/L (21-32); CHLORIDE 104 mmol/L (98-107); COR NA(FOR HYPERGLY) 138 mmol/L (136-145); CREATININE 0.82 mg/dL (0.55-1.02); SODIUM 137 mmol/L (136-145); TROPONIN I 0.03 ng/mL (0-1.5); eGFR BLACK RACES > 60 (>60); eGFR NON BLACK RACES > 60 (>60)
[2017-06-19 18:27] LABS: ALANINE AMINOTRANSFERASE 30 Units/L (12-78); ALBUMIN 2.7 g/dL (3.4-5.0); ALKALINE PHOSPHATASE 184 Units/L (46-116); ASPARTATE AMINO TRANSFERASE 32 Units/L (15-37); CKMB % 2.4 % (<4); COR CA(FOR HYPOALB) 9.3 mg/dL (8.5-10.1); CREATINE KINASE 54 Units/L (26-192); CREATINE KINASE MB 1.3 ng/mL (0-4.0); TOTAL PROTEIN 5.9 g/dL (6.4-8.2)
--- NOTE | 2017-06-19 18:36 | CT ---
CT HEAD WITHOUT CONTRAST CLINICAL HISTORY: 86-year-old female with altered mental status, disorientation. COMPARISON: MR brain May 15, 2017, CT head May 15, 2017. TECHNIQUE: Multiple, non-contrasted axial CT images were obtained from the skull base to the cranial vertex. Coronal and sagittal reformats were performed. FINDINGS: There are no abnormal intra- or extra-axial fluid collections, midline shift, or mass effec t. Yao-white differentiation is normal. Partially empty sella. Global cortical involutional changes are present that are advanced for the patient's stated age. The ventricular system is enlarged but co mmensurate with the degree of sulcal prominence. Cavum septum pellucidum et vergae. Chronic infarctio ns within the anterior right frontal and posterior left frontal/parietal lobes with associated enceph alomalacia. Periventricular and supraventricular white matter hypodensity is present that is nonspeci fic in appearance, but most likely to represent microvascular ischemic changes. Atherosclerotic vascu lar calcification is present within the carotid siphons and distal vertebral arteries. Poorly pneumatized right frontal sinus. Scattered mucosal thickening within the ethmoid labyrinth. Th e remaining imaged paranasal sinuses, mastoid air cells, and tympanic spaces are clear. IMPRESSION: 1. No definite evidence of an acute intracranial process. If clinical concern persists, consider MRI/ MRA brain. 2. Moderate microvascular white matter ischemic changes, with associated volume loss. 3. Chronic infarctions right frontal and left frontal/parietal lobes with associated encephalomalacia . Reported By:
--- NOTE | 2017-06-19 20:32 | RAD ---
HISTORY: 86-year-old female with chest pain. Study: Frontal view of the chest. Comparison: Chest radiograph May 15, 2017 Findings: The trachea is midline. The cardiac silhouette is unremarkable. The lungs are clear without focal c onsolidation, effusion or pneumothorax. Soft tissues are unremarkable. Osseous structures are unrema rkable. IMPRESSION: 1. No acute cardiopulmonary disease. Reported By:
[2017-06-19 22:37] LABS: BILIRUBIN,URINE NEGATIVE (NEGATIVE); BLOOD/HEMOGLOBIN,URINE NEGATIVE (NEGATIVE); GLUCOSE, URINE NEGATIVE (NEGATIVE); KETONES,URINE NEGATIVE (NEGATIVE); LEUKOCYTE ESTERASE ,URINE 2+ (NEGATIVE); NITRITES,URINE NEGATIVE (NEGATIVE); PH,URINE 6.5 (5.0 - 8.0); PROTEIN,URINE 1+ (NEGATIVE); UROBILINOGEN,URINE 1+ (NORMAL)
[2017-06-19] MEDS ORDERED: DEPAKOTE D.R. TAB PO ONE (22:42)
[2017-06-19 22:45] LABS: APPEARANCE,URINE CLEAR (CLEAR); BACTERIA,URINE NEGATIVE /HPF (NEGATIVE); COLOR,URINE YELLOW (YELLOW); RBC,URINE 0-3 /HPF (NEGATIVE); SQUAMOUS EPITHELIAL CELL,UR FEW /HPF (NEGATIVE)
[2017-06-20] MEDS ORDERED: ULTRAM PO PRN (00:29)
[2017-06-20 01:08] VITALS: BMI 26.4
[2017-06-20] MEDS ORDERED: DEPAKOTE D.R. TAB PO ONE (01:24)
[2017-06-20] MEDS: NS 1000 ML 1,000 ML IV SCH ×2 (01:29→12:49)
[2017-06-20 05:40] LABS: BASOPHILS % (AUTO) 1.3 % (0.2-1.0); EOSINOPHILS # (AUTO) 0.2 x10^3/uL (0.0-0.2); EOSINOPHILS % (AUTO) 4.5 % (0.9-2.9); HEMATOCRIT 24.7 % (36.0-47.0); HEMOGLOBIN 8.5 g/dL (12.0-16.0); LYMPHOCYTES # (AUTO) 1.2 X10^3/uL (1.3-2.9); LYMPHOCYTES % (AUTO) 33.6 % (21.0-51.0); MEAN CORPUSCULAR HGB CONC 34.5 g/dL (33.0-35.0); MEAN CORPUSCULAR VOLUME 89.7 fL (80.0-100.0); MEAN PLATELET VOLUME 8.3 fL (7.4-11.0); MONOCYTES # (AUTO) 0.7 x10^3/uL (0.3-0.8); MONOCYTES % (AUTO) 18.9 % (0.0-13.0); NEUTROPHILS # (AUTO) 1.5 x10^3/uL (2.2-4.8); NEUTROPHILS % (AUTO) 41.7 % (42.0-75.0); PLATELET COUNT 165 X10^3/uL (150.0-450.0); RED BLOOD COUNT 2.75 X10^6/uL (3.5-5.4); RED CELL DISTRIBUTION WIDTH 14.4 % (11.6-16.5); WHITE BLOOD COUNT 3.6 X10^3/uL (3.6-10.0)
[2017-06-20 06:04] LABS: CKMB % 2.2 % (<4); CREATINE KINASE 46 Units/L (26-192); CREATINE KINASE MB < 1.0 ng/mL (0-4.0); TROPONIN I 0.03 ng/mL (0-1.5)
[2017-06-20 06:23] LABS: ALANINE AMINOTRANSFERASE 26 Units/L (12-78); ALBUMIN 2.5 g/dL (3.4-5.0); ALKALINE PHOSPHATASE 166 Units/L (46-116); ASPARTATE AMINO TRANSFERASE 26 Units/L (15-37); BLOOD UREA NITROGEN 12 mg/dL (7-18); CALCIUM 7.9 mg/dL (8.5-10.1); CARBON DIOXIDE 28.6 mmol/L (21-32); CHLORIDE 106 mmol/L (98-107); COR CA(FOR HYPOALB) 9.1 mg/dL (8.5-10.1); CREATININE 0.78 mg/dL (0.55-1.02); MAGNESIUM 1.8 mg/dL (1.7-2.9); SODIUM 140 mmol/L (136-145); TOTAL PROTEIN 5.4 g/dL (6.4-8.2); eGFR BLACK RACES > 60 (>60); eGFR NON BLACK RACES > 60 (>60)
[2017-06-20] MEDS ORDERED: ROSUVASTATIN CALCIUM 40 MG PO SCH (09:00)
[2017-06-20] MEDS ORDERED: NORVASC TAB 2.5 MG ONE (10:05)
[2017-06-20] MEDS ORDERED: ZESTRIL TAB 20 MG ONE ×2 (10:06→20:54)
[2017-06-20] MEDS: DILANTIN CAP 100 MG EXT REL PO SCH (10:09)
[2017-06-20] MEDS: PLAVIX PO SCH (10:10)
[2017-06-20] MEDS: CRESTOR TAB 10 MG PO SCH (10:10)
[2017-06-20] MEDS: ASPIRIN PO SCH (10:11)
[2017-06-20] MEDS: XARELTO PO SCH (10:11)
[2017-06-20] MEDS: NORVASC TAB 2.5 MG PO SCH (10:12)
[2017-06-20] MEDS: DIVALPROEX SODIUM PO SCH (10:12)
[2017-06-20] MEDS: ZESTRIL TAB 20 MG PO SCH ×2 (10:12→21:01)
[2017-06-20 11:54] LABS: CKMB % 1.9 % (<4); CREATINE KINASE 52 Units/L (26-192); CREATINE KINASE MB < 1.0 ng/mL (0-4.0); TROPONIN I 0.02 ng/mL (0-1.5)
[2017-06-20] MEDS ORDERED: NS 100 ML IV 100 ML IV ONE (15:24)
--- NOTE | 2017-06-20 17:28 | CT ---
CT ANGIOGRAPHY NECK CLINICAL HISTORY: 86-year-old female with altered mental status and weakness status post seizure. COMPARISON: None. TECHNIQUE: Multiple axial CT images were obtained from the skull base to the aortic arch prior to an d following the administration of IV contrast and reformatted in the sagittal and coronal planes. Rot ating 3D and MIP reformats are submitted. FINDINGS: The take-off of the great vessels is conventional. The origins of the common carotid and ve rtebral arteries are patent. Calcific and noncalcific atherosclerotic plaque within the carotid bulbs and at the proximal ICA bilaterally resulting in approximately 50% bilateral proximal ICA stenosis. There is non flow limiting calcific atherosclerotic plaque within the cavernous segments of the ICA b ilaterally. The vertebral arteries are codominant. The vertebral arteries terminate in a normal appea ring basilar artery. Scattered atherosclerotic calcification within the aortic arch and at the origin of the great vessels without flow-limiting stenosis. The soft tissues of the neck are within normal limits. Diffuse paraseptal and centrilobular emphysema tous change with increased AP diameter of the thorax consistent with COPD. Multilevel degenerative ch brittney and spondyloarthropathy. At C2-C3: Central disk osteophyte narrows canal on 9.9 mm, severe left facet hypertrophy without sign ificant neural foraminal stenosis. At C3-C4: Central disk osteophyte with calcified of ligamentum flavum narrows canal to 8.6 mm. Modera te uncovertebral and left severe facet hypertrophy produce mild to moderate left neural foraminal delfina nosis. At C4-C5: Central disk osteophyte narrows canal to 9.8 mm. Significant uncovertebral and facet joint hypertrophy, predominantly on the left produces severe left neural foraminal stenosis and mild to mod erate right neural foraminal stenosis. At C5-C6: Loss of disc space with central disc osteophyte which narrows canal approximately 9.7 mm. S evere right and moderate left facet hypertrophy combines with significant uncovertebral joint hypertr ophy producing mild to moderate right neural foraminal stenosis. There is significant calcification o f the ligamentum flavum at this level. At C6-C7: There complete loss of disc space with endplate sclerosis. Central disk osteophyte narrows canal approximately 7.1 mm. Severe uncovertebral joint hypertrophy with spurring with facet hypertrop hy produces moderate to severe bilateral neural foraminal stenosis. At C7-T1: No significant central canal or neural foraminal stenosis. IMPRESSION: 1. Approximately 50% stenosis of the proximal ICA bilaterally secondary to calcific and noncalcific a therosclerotic plaque. 2. Significant multilevel degenerative change of the cervical spine, see level by level descriptions above. Reported By:
--- NOTE | 2017-06-20 19:03 | VAS ---
CAROTID ULTRASOUND CLINICAL INDICATION: Seizures PROCEDURE: Pulsed wave and color-flow duplex imaging was utilized to evaluate the extracranial caroti d arteries. COMPARISON: None FINDINGS: Right carotid: Plaque at the bifurcation. No hemodynamically significant stenosis involving the right carotid artery . The velocities are as follows: Distal CCA peak systolic velocity 65 cm/sec and peak end-diastolic velocity 2 cm/sec, ICA peak systol ic velocity 73 cm/sec and peak end-diastolic velocity 12 cm/sec. Flow within the right vertebral and right ECA is directed antegrade. Left carotid: Plaque at the bifurcation. No hemodynamically significant stenosis involving the left carotid artery. The velocities are as follows: Distal CCA peak systolic velocity 65 cm/sec and peak end-diastolic velocity 2 cm/sec, ICA peak systol ic velocity 95 cm/sec and peak end-diastolic velocity 8 cm/sec. Flow within the left vertebral and le ft ECA is directed antegrade. IMPRESSION: 1. No hemodynamically significant stenosis involving either the right or left ICA. 2. Normal peak systolic velocity corresponds to a less than 50% diameter stenosis of the right ICA. 3. Normal peak systolic velocity corresponds to a less than 50% diameter stenosis of the left ICA. Reported By:
[2017-06-20] MEDS ORDERED: KLONOPIN TAB 0.5 MG PO SCH (21:00)
[2017-06-20] MEDS ORDERED: DEPAKOTE SPRINKLE PO SCH (21:00)
[2017-06-20] MEDS ORDERED: RESTORIL CAP 30 MG PO PRN (22:21)
[2017-06-21 06:17] LABS: BASOPHILS # (AUTO) 0.1 X10^3/uL (0.0-0.1); BASOPHILS % (AUTO) 1.6 % (0.2-1.0); EOSINOPHILS # (AUTO) 0.1 x10^3/uL (0.0-0.2); EOSINOPHILS % (AUTO) 3.9 % (0.9-2.9); HEMATOCRIT 23.8 % (36.0-47.0); LYMPHOCYTES # (AUTO) 1.3 X10^3/uL (1.3-2.9); LYMPHOCYTES % (AUTO) 39.5 % (21.0-51.0); MEAN CORPUSCULAR HEMOGLOBIN 30.8 pg (27.0-34.0); MEAN CORPUSCULAR HGB CONC 33.8 g/dL (33.0-35.0); MEAN CORPUSCULAR VOLUME 91.1 fL (80.0-100.0); MEAN PLATELET VOLUME 8.5 fL (7.4-11.0); MONOCYTES # (AUTO) 0.5 x10^3/uL (0.3-0.8); MONOCYTES % (AUTO) 15.2 % (0.0-13.0); NEUTROPHILS # (AUTO) 1.4 x10^3/uL (2.2-4.8); NEUTROPHILS % (AUTO) 39.8 % (42.0-75.0); PLATELET COUNT 156 X10^3/uL (150.0-450.0); RED BLOOD COUNT 2.61 X10^6/uL (3.5-5.4); WHITE BLOOD COUNT 3.4 X10^3/uL (3.6-10.0)
[2017-06-21 06:23] LABS: ALANINE AMINOTRANSFERASE 23 Units/L (12-78); ALBUMIN 2.3 g/dL (3.4-5.0); ALKALINE PHOSPHATASE 156 Units/L (46-116); ASPARTATE AMINO TRANSFERASE 25 Units/L (15-37); BLOOD UREA NITROGEN 10 mg/dL (7-18); CARBON DIOXIDE 27.4 mmol/L (21-32); CHLORIDE 110 mmol/L (98-107); COR CA(FOR HYPOALB) 9.4 mg/dL (8.5-10.1); CREATININE 0.68 mg/dL (0.55-1.02); SODIUM 144 mmol/L (136-145); TOTAL PROTEIN 5.1 g/dL (6.4-8.2); eGFR BLACK RACES > 60 (>60); eGFR NON BLACK RACES > 60 (>60)
[2017-06-21] MEDS: NS 1000 ML 1,000 ML IV SCH (06:40)
[2017-06-21] MEDS ORDERED: NORVASC TAB 2.5 MG ONE (08:59)
[2017-06-21] MEDS ORDERED: ZESTRIL TAB 20 MG ONE (09:00)
[2017-06-21] MEDS: CRESTOR TAB 10 MG PO SCH (09:07)
[2017-06-21] MEDS: XARELTO PO SCH (09:07)
[2017-06-21] MEDS: PLAVIX PO SCH (09:07)
[2017-06-21] MEDS: DILANTIN CAP 100 MG EXT REL PO SCH (09:07)
[2017-06-21] MEDS: ASPIRIN PO SCH (09:08)
[2017-06-21] MEDS: ZESTRIL TAB 20 MG PO SCH (09:08)
[2017-06-21] MEDS: DIVALPROEX SODIUM PO SCH (09:08)
[2017-06-21] MEDS: NORVASC TAB 2.5 MG PO SCH (09:08)
[2017-06-21 11:39] VITALS: BP 158/84
--- NOTE | 2017-07-14 12:37 | DR.H&P ---
H&P - History & Physical for Day of: H&P Date: 07/19/17 - Chief Complaint Chief Complaint: Generalized weakness/vertigo - Allergies Allergies/Adverse Reactions: Allergies Allergy/AdvReac Type Severity Reaction Status Date / Time promethazine [From Phenergan] AdvReac Verified 06/19/17 17:38 - History of Present Illness History of Present Illness: The patient is a 7-year-old white female who presented to the [facility] emergency room along with family members complaining of altered mental status and generalized weakness for the past 2-3 days. Patient has a history of a seizure disorder and had 3 seizures approximately 2 days ago. The above-described symptoms of intermittent "confusion" and generalized weakness and worsened since her seizures. The patient's neurological examination emergency room setting was noted to be nonfocal. CT scan of the head was unremarkable. Patient was subsequent admitted for further workup. - Past Medical History Past Medical History: Anxiety, Arthritis, COPD, CVA, Depression, Dyslipidemia, GERD, Hypertension, Seizures Additional Medical History: Gall Bladder Disease, Urinary Tract Infections, Muscle Weakness, H-pylori, Osteoarthritis - Past Surgical History Surgical History: Cholecystectomy - Family History Family Medical History: Diabetes Mellitus, Cancer, [place], Coronary Artery Disease, Heart Failure, Hypertension - Social History Does patient currently use any type of tobacco product: Yes Have you used tobacco products in the last 12 months: Yes Type of Tobacco Use: Cigarettes How many years tobacco product used: 61 Does any household member use tobacco: Yes Alcohol Use: None Drug Use: None - Medications Home Medications: Temazepam [RESTORIL 15 MG (GENERIC) *] 30 mg PO HS PRN 06/19/17 [History Confirmed 06/19/17] Tramadol HCl [ULTRAM 50 MG *] 50 mg PO Q4-6H PRN 06/19/17 [History Confirmed 04/28] - Review of Systems Constitutional: See HPI Eyes: No Symptoms Reported ENT: No Symptoms Reported Respiratory: No Symptoms Reported Cardiovascular: No Symptoms Reported Gastrointestinal: No Symptoms Reported Musculoskeletal: No Symptoms Reported Skin: No Symptoms Reported Neurological: See HPI - Physical Exam Vital Signs: Temperature 97.7 F Pulse Rate [Right Radial] 62 Pulse Rate 66 Respiratory Rate 20 Blood Pressure [Right Arm] 158/84 Blood Pressure [Left Arm] 173/74 Blood Pressure 118/58 O2 Sat by Pulse Oximetry 99 Oriented: Normal Eyes: Normal Ear: Normal Nose: Normal Throat: Normal Respiratory: Clear Throughout Cardiovascular: Normal : Normal Auscultation: Bowel Sounds: Normal Palpation: Normal (finally morbidly as is the same) Tenderness: Normal Skin: Normal Musculoskeletal: Normal Psychiatric: Normal (Patient was alert and oriented in person, place, time and partially situation. The patient's spinal simple questions properly. Family members at the bedside stated that the patient's mental status appeared to be mildly decreased compared to baseline.) Mood Description: Calm Affect: Normal Speech Pattern: Clear - Assessment/Plan (1) Altered mental status Qualifiers: Altered mental status type: transient alteration of awareness Qualified Code(s): R40.4 - Transient alteration of awareness Status: Acute Plan: 1. Admit for outpatient. 2. Normal saline at 50 cc/h. 3. Chest x- ray. 4. CT scan of head without contrast. 5. UA C&S. 6. CMP and CBC. 7. Bilateral carotid sonogram in a.m. 8. CTA of the neck in a.m. 9. Continue home medications. 10. For further orders, see chart. (2) Generalized weakness Status: Acute Plan: As above (3) Vertigo Status: Acute Plan: As above.
--- NOTE | 2017-07-14 12:54 | PCM.PROG ---
Progress Note - Progress Note for Day of Date: 06/20/17 - Subjective Subjective: The patient is an 87-year-old white female who was admitted to [facility] on 06/19/2017 secondary to altered mental status, vertigo and generalized weakness. Patient has multiple family was at bedside who states that her mental status has returned to near baseline. Patient continues to mild vertigo. Patient states her draws weakness has minimally improved. - Past Medical Family Social History Past Med/Fam/Surg Hx: No changes since H&P Allergies: Allergies promethazine [From Phenergan] Adverse Reaction (Verified 06/19/17 17:38) - Review of Systems ROS: No change since H&P - Vital Signs and I&O's Vital Signs: Temperature 97.7 F Pulse Rate [Right Radial] 62 Pulse Rate 66 Respiratory Rate 20 Blood Pressure [Right Arm] 158/84 Blood Pressure [Left Arm] 173/74 Blood Pressure 118/58 O2 Sat by Pulse Oximetry 99 - Physical Exam Oriented: Normal Eyes: Normal Ear: Normal Nose: Normal Throat: Normal Respiratory: Normal Cardiovascular: Normal : Normal Auscultation: Bowel Sounds: Normal Tenderness: Normal Skin: Normal Musculoskeletal: Normal Psychiatric: Normal (Patient was alert and oriented in person, place, time and partially situation. The patient's spinal simple questions properly. Family members at the bedside stated that the patient's mental status appeared to be mildly decreased compared to baseline.) Mood Description: Calm Affect: Normal Speech Pattern: Clear - Laboratory and Diagnostics Result Diagrams: 06/21/17 05:10 06/21/17 05:10 Labs: Laboratory WBC 3.4 X10^3/uL (3.6-10.0) L 06/21/17 05:10 RBC 2.61 X10^6/uL (3.5-5.4) L 06/21/17 05:10 Hgb 8.0 g/dL (12.0-16.0) L 06/21/17 05:10 Hct 23.8 % (36.0-47.0) L 06/21/17 05:10 MCV 91.1 fL (80.0-100.0) 06/21/17 05:10 MCH 30.8 pg (27.0-34.0) 06/21/17 05:10 MCHC 33.8 g/dL (33.0-35.0) 06/21/17 05:10 RDW 15.0 % (11.6-16.5) 06/21/17 05:10 Plt Count 156 X10^3/uL (150.0-450.0) 06/21/17 05:10 MPV 8.5 fL (7.4-11.0) 06/21/17 05:10 Neut % 39.8 % (42.0-75.0) L 06/21/17 05:10 Lymph % 39.5 % (21.0-51.0) 06/21/17 05:10 [place] % 15.2 % (0.0-13.0) H 06/21/17 05:10 Eos % 3.9 % (0.9-2.9) H 06/21/17 05:10 Baso % 1.6 % (0.2-1.0) H 06/21/17 05:10 Neut # 1.4 x10^3/uL (2.2-4.8) L 06/21/17 05:10 Lymph # 1.3 X10^3/uL (1.3-2.9) 06/21/17 05:10 [place] # 0.5 x10^3/uL (0.3-0.8) 06/21/17 05:10 Eos # 0.1 x10^3/uL (0.0-0.2) 06/21/17 05:10 Baso # 0.1 X10^3/uL (0.0-0.1) 06/21/17 05:10 Absolute Nucleated RBC 0.0 /100WBC 06/21/17 05:10 INR Target Range - 06/20/17 04:50 INR 1.08 (0.8-1.3) 06/20/17 04:50 PTT 28.3 SECONDS (22.9-36.5) 06/20/17 04:50 PTT Comment - 06/20/17 04:50 Sodium 144 mmol/L (136-145) 06/21/17 05:10 Corrected Sodium TNP 06/21/17 05:10 Potassium 3.9 mmol/L (3.5-5.1) 06/21/17 05:10 Chloride 110 mmol/L (98-107) H 06/21/17 05:10 Carbon Dioxide 27.4 mmol/L (21-32) 06/21/17 05:10 BUN 10 mg/dL (7-18) 06/21/17 05:10 Creatinine 0.68 mg/dL (0.55-1.02) 06/21/17 05:10 Est GFR (MDRD) Af Amer > 60 (>60) 06/21/17 05:10 Est GFR (MDRD) Non-Af > 60 (>60) 06/21/17 05:10 Glucose 78 mg/dL (65-99) 06/21/17 05:10 Calcium 8.0 mg/dL (8.5-10.1) L 06/21/17 05:10 Corrected Calcium 9.4 mg/dL (8.5-10.1) 06/21/17 05:10 Magnesium 1.8 mg/dL (1.7-2.9) 06/20/17 04:50 Total Bilirubin 0.20 mg/dL (0.2-1.0) 06/21/17 05:10 AST 25 Units/L (15-37) 06/21/17 05:10 ALT 23 Units/L (12-78) 06/21/17 05:10 Alkaline Phosphatase 156 Units/L (46-116) H 06/21/17 05:10 Creatine Kinase 52 Units/L (26-192) 06/20/17 10:55 CK-MB (CK-2) < 1.0 ng/mL (0-4.0) 06/20/17 10:55 CK/CKMB % Calc 1.9 % (<4) 06/20/17 10:55 Troponin I 0.02 ng/mL (0-1.5) 06/20/17 10:55 Total Protein 5.1 g/dL (6.4-8.2) L 06/21/17 05:10 Albumin 2.3 g/dL (3.4-5.0) L 06/21/17 05:10 Globulin 2.8 g/dL (2.5-4.5) 06/21/17 05:10 Albumin/Globulin Ratio 0.8 Ratio (1.1-2.1) L 06/21/17 05:10 Specimen Type Clean catch urine 06/19/17 21:45 Urine Color Yellow (YELLOW) 06/19/17 21:45 Urine Appearance Clear (CLEAR) 06/19/17 21:45 Urine pH 6.5 (5.0 - 8.0) 06/19/17 21:45 Ur Specific [place] 1.010 (1.000-1.030) 06/19/17 21:45 Urine Protein 1+ (NEGATIVE) 06/19/17 21:45 Urine Glucose (UA) Negative (NEGATIVE) 06/19/17 21:45 Urine Ketones Negative (NEGATIVE) 06/19/17 21:45 Urine Occult Blood Negative (NEGATIVE) 06/19/17 21:45 Urine Nitrite Negative (NEGATIVE) 06/19/17 21:45 Urine Bilirubin Negative (NEGATIVE) 06/19/17 21:45 Urine Urobilinogen 1+ (NORMAL) 06/19/17 21:45 Ur Leukocyte Esterase 2+ (NEGATIVE) 06/19/17 21:45 Urine RBC 0-3 /HPF (NEGATIVE) 06/19/17 21:45 Urine WBC 2-6 /HPF (NEGATIVE) 06/19/17 21:45 Ur Squamous Epith Cells Few /HPF (NEGATIVE) 06/19/17 21:45 Urine Bacteria Negative /HPF (NEGATIVE) 06/19/17 21:45 Ur Culture Indicated? No/not indicated 06/19/17 21:45 Phenytoin 10.6 ug/mL (10-20) 06/21/17 05:10 Valproic Acid 36.0 ug/mL (50-100) L 06/19/17 17:43 - Plan (1) Altered mental status Status: Acute Qualifiers: Altered mental status type: transient alteration of awareness Qualified Code(s): R40.4 - Transient alteration of awareness Plan: 1. Continue telemetry. 2. Continue O2 2 L/m per nasal cannula. 3. Bilateral carotid ultrasound today. 4. CTA of the neck. 5. Continue current medications. 6. For further orders see chart (2) Generalized weakness Status: Acute Plan: As above (3) Vertigo Status: Acute Plan: As above.
--- NOTE | 2017-07-14 12:57 | PCM.DCPLAN ---
Discharge Summary - Admission Date Date of Admission: 06/19/17 - Discharge Date Discharge Date: 06/21/17 - Admission Diagnoses (1) Altered mental status Status: Acute (2) Generalized weakness Status: Acute (3) Vertigo Status: Acute - Discharge Diagnoses Discharge Diagnosis: Same - Discharge Medications Discharge Medications: Temazepam [RESTORIL 15 MG (GENERIC) *] 30 mg PO HS PRN 06/19/17 [History] Tramadol HCl [ULTRAM 50 MG *] 50 mg PO Q4-6H PRN 06/19/17 [History] - Hospital Course Vital Signs: Temperature 97.7 F Pulse Rate [Right Radial] 62 Pulse Rate 66 Respiratory Rate 20 Blood Pressure [Right Arm] 158/84 Blood Pressure [Left Arm] 173/74 Blood Pressure 118/58 O2 Sat by Pulse Oximetry 99 Latest Lab Results: Laboratory Last Values WBC 3.4 X10^3/uL (3.6-10.0) L 06/21/17 05:10 RBC 2.61 X10^6/uL (3.5-5.4) L 06/21/17 05:10 Hgb 8.0 g/dL (12.0-16.0) L 06/21/17 05:10 Hct 23.8 % (36.0-47.0) L 06/21/17 05:10 MCV 91.1 fL (80.0-100.0) 06/21/17 05:10 MCH 30.8 pg (27.0-34.0) 06/21/17 05:10 MCHC 33.8 g/dL (33.0-35.0) 06/21/17 05:10 RDW 15.0 % (11.6-16.5) 06/21/17 05:10 Plt Count 156 X10^3/uL (150.0-450.0) 06/21/17 05:10 MPV 8.5 fL (7.4-11.0) 06/21/17 05:10 Neut % 39.8 % (42.0-75.0) L 06/21/17 05:10 Lymph % 39.5 % (21.0-51.0) 06/21/17 05:10 [place] % 15.2 % (0.0-13.0) H 06/21/17 05:10 Eos % 3.9 % (0.9-2.9) H 06/21/17 05:10 Baso % 1.6 % (0.2-1.0) H 06/21/17 05:10 Neut # 1.4 x10^3/uL (2.2-4.8) L 06/21/17 05:10 Lymph # 1.3 X10^3/uL (1.3-2.9) 06/21/17 05:10 [place] # 0.5 x10^3/uL (0.3-0.8) 06/21/17 05:10 Eos # 0.1 x10^3/uL (0.0-0.2) 06/21/17 05:10 Baso # 0.1 X10^3/uL (0.0-0.1) 06/21/17 05:10 Absolute Nucleated RBC 0.0 /100WBC 06/21/17 05:10 INR Target Range - 06/20/17 04:50 INR 1.08 (0.8-1.3) 06/20/17 04:50 PTT 28.3 SECONDS (22.9-36.5) 06/20/17 04:50 PTT Comment - 06/20/17 04:50 Sodium 144 mmol/L (136-145) 06/21/17 05:10 Corrected Sodium TNP 06/21/17 05:10 Potassium 3.9 mmol/L (3.5-5.1) 06/21/17 05:10 Chloride 110 mmol/L (98-107) H 06/21/17 05:10 Carbon Dioxide 27.4 mmol/L (21-32) 06/21/17 05:10 BUN 10 mg/dL (7-18) 06/21/17 05:10 Creatinine 0.68 mg/dL (0.55-1.02) 06/21/17 05:10 Est GFR (MDRD) Af Amer > 60 (>60) 06/21/17 05:10 Est GFR (MDRD) Non-Af > 60 (>60) 06/21/17 05:10 Glucose 78 mg/dL (65-99) 06/21/17 05:10 Calcium 8.0 mg/dL (8.5-10.1) L 06/21/17 05:10 Corrected Calcium 9.4 mg/dL (8.5-10.1) 06/21/17 05:10 Magnesium 1.8 mg/dL (1.7-2.9) 06/20/17 04:50 Total Bilirubin 0.20 mg/dL (0.2-1.0) 06/21/17 05:10 AST 25 Units/L (15-37) 06/21/17 05:10 ALT 23 Units/L (12-78) 06/21/17 05:10 Alkaline Phosphatase 156 Units/L (46-116) H 06/21/17 05:10 Creatine Kinase 52 Units/L (26-192) 06/20/17 10:55 CK-MB (CK-2) < 1.0 ng/mL (0-4.0) 06/20/17 10:55 CK/CKMB % Calc 1.9 % (<4) 06/20/17 10:55 Troponin I 0.02 ng/mL (0-1.5) 06/20/17 10:55 Total Protein 5.1 g/dL (6.4-8.2) L 06/21/17 05:10 Albumin 2.3 g/dL (3.4-5.0) L 06/21/17 05:10 Globulin 2.8 g/dL (2.5-4.5) 06/21/17 05:10 Albumin/Globulin Ratio 0.8 Ratio (1.1-2.1) L 06/21/17 05:10 Specimen Type Clean catch urine 06/19/17 21:45 Urine Color Yellow (YELLOW) 06/19/17 21:45 Urine Appearance Clear (CLEAR) 06/19/17 21:45 Urine pH 6.5 (5.0 - 8.0) 06/19/17 21:45 Ur Specific [place] 1.010 (1.000-1.030) 06/19/17 21:45 Urine Protein 1+ (NEGATIVE) 06/19/17 21:45 Urine Glucose (UA) Negative (NEGATIVE) 06/19/17 21:45 Urine Ketones Negative (NEGATIVE) 06/19/17 21:45 Urine Occult Blood Negative (NEGATIVE) 06/19/17 21:45 Urine Nitrite Negative (NEGATIVE) 06/19/17 21:45 Urine Bilirubin Negative (NEGATIVE) 06/19/17 21:45 Urine Urobilinogen 1+ (NORMAL) 06/19/17 21:45 Ur Leukocyte Esterase 2+ (NEGATIVE) 06/19/17 21:45 Urine RBC 0-3 /HPF (NEGATIVE) 06/19/17 21:45 Urine WBC 2-6 /HPF (NEGATIVE) 06/19/17 21:45 Ur Squamous Epith Cells Few /HPF (NEGATIVE) 06/19/17 21:45 Urine Bacteria Negative /HPF (NEGATIVE) 06/19/17 21:45 Ur Culture Indicated? No/not indicated 06/19/17 21:45 Phenytoin 10.6 ug/mL (10-20) 06/21/17 05:10 Valproic Acid 36.0 ug/mL (50-100) L 06/19/17 17:43 Hospital Course: I stated in history presentis 87-year-old white female who presented to the [facility] emergency room setting complaining of generalized weakness, mild altered mental status, and vertigo. Patient was accompanied by multiple family members who stated that the patient had 3 seizures 2 days ago and her symptoms have worsened since that time. At the time of evaluation the emergency room setting the patient's physical exam was noted to be nonfocal and the CT scan of the head revealed no acute changes. Patient was subsequently admitted for further workup. Patient underwent a bilateral carotid sonogram and a CTA of the neck during this admission which revealed evidence of moderately obstructive carotid disease without indication for further intervention. On 06/21/2017 patient also has had returned within normal limits. Patient was tolerating all medications well. Patient was felt to be stable for discharge home with close follow-up outpatient basis by her primary care physician Dr. Lester. - Discharge Plan Disposition: 01 HOME, SELF-CARE Condition: Stable - Follow ups/Referrals Follow ups/Referrals: Nikos Lester [Primary Care Provider] - 3 days - Instructions Instructions: Fall Prevention in the Home, [id number], Confusion, Chronic Obstructive Pulmonary Disease, [id number], Hypertension, [id number], Seizure , Adult, [id number] Additional Instructions: Continue home medications as prescribed. Diet as tolerated. Activity as tolerated. Follow up with Dr. Lester next week. Forms: Patient Portal
== END 2017-06-21 14:30 | disposition home or self-care (01) ==
LOC: ER 17:32 → MED/SURG 22:24
PROVIDERS: ADMIT Internal Medicine; ATTEND Internal Medicine
DX: R40.4 Transient alteration of awareness (principal); R53.1 Weakness; G40.802 Other epilepsy, not intractable, without status epilepticus; Z79.899 Other long term (current) drug therapy; E11.65 Type 2 diabetes mellitus with hyperglycemia; D64.89 Other specified anemias; R42 Dizziness and giddiness
CPT/HCPCS: 36415; 70450; 70498; 71010; 80053; 80164; 80185; 81001; 82550; 82553; 83735; 84484; 85025; 85610; 85730; 93005; 93010; 93880; 94760; 96365; 99284; G0378

== ENCOUNTER 2017-11-02 20:37 | Inpatient (IN) | payer OTHER, MEDICAID ==
[2017-11-02 20:49] VITALS: BMI 29.2
[2017-11-02] MEDS ORDERED: NS 1000 ML 1,000 ML IV ONE (21:04)
[2017-11-02] MEDS ORDERED: NS 1000 ML 1,000 ML ONE ×2 (21:06→22:08)
[2017-11-02 21:20] LABS: BASOPHILS % (AUTO) 0.6 % (0.2-1.0); EOSINOPHILS % (AUTO) 0.2 % (0.9-2.9); HEMATOCRIT 25.8 % (36.0-47.0); HEMOGLOBIN 8.5 g/dL (12.0-16.0); LYMPHOCYTES # (AUTO) 1.3 X10^3/uL (1.3-2.9); LYMPHOCYTES % (AUTO) 20.3 % (21.0-51.0); MEAN CORPUSCULAR HEMOGLOBIN 31.5 pg (27.0-34.0); MEAN CORPUSCULAR HGB CONC 32.9 g/dL (33.0-35.0); MEAN CORPUSCULAR VOLUME 95.9 fL (80.0-100.0); MEAN PLATELET VOLUME 9.8 fL (7.4-11.0); MONOCYTES # (AUTO) 0.4 x10^3/uL (0.3-0.8); MONOCYTES % (AUTO) 5.8 % (0.0-13.0); NEUTROPHILS # (AUTO) 4.8 x10^3/uL (2.2-4.8); NEUTROPHILS % (AUTO) 73.1 % (42.0-75.0); PLATELET COUNT 97 X10^3/uL (150.0-450.0); RED BLOOD COUNT 2.69 X10^6/uL (3.5-5.4); RED CELL DISTRIBUTION WIDTH 13.4 % (11.6-16.5); WHITE BLOOD COUNT 6.6 X10^3/uL (3.6-10.0)
[2017-11-02 21:36] LABS: CALCIUM 7.9 mg/dL (8.5-10.1); CARBON DIOXIDE 19.4 mmol/L (21-32); CREATININE 1.66 mg/dL (0.55-1.02); TROPONIN I 0.03 ng/mL (0-1.5)
[2017-11-02 21:40] LABS: ALBUMIN 2.6 g/dL (3.4-5.0); CKMB % 2.5 % (<4); CREATINE KINASE MB 1.6 ng/mL (0-4.0); TOTAL PROTEIN 5.5 g/dL (6.4-8.2)
--- NOTE | 2017-11-02 22:06 | RAD ---
Chest, one-view Indication: Altered mental status, nausea, vomiting Comparison: 06/19/2017 Findings: Heart size is normal. No focal consolidation, effusion or pneumothorax is identified. There is no acute osseous abnormality. Impression: No acute cardiopulmonary abnormality. Reported By:
[2017-11-02] MEDS ORDERED: NS 1000 ML 1,000 ML IV SCH (23:00)
[2017-11-02 23:21] LABS: ABG BASE EXCESS -9.6 mmol/L (-2.0-2.0); ABG HCO3 16.5 mmol/L (22-26)
--- NOTE | 2017-11-02 23:46 | CT ---
CT head without contrast Indication: Altered mental status, abdominal pain, nausea, vomiting Technique: Helical CT images of the brain were obtained without IV contrast. Reformatted images in th e coronal and sagittal planes were also generated for review. Comparison: 06/19/2017 Findings: Diffuse generalized cerebral atrophy and advanced periventricular and subcortical white mat ter microangiopathic disease are again noted and unchanged. Chronic infarctions of the anterior right frontal and posterior left frontal parietal lobes with mild associated encephalomalacia are also sim ilar. Yao-white differentiation is otherwise maintained. No visible acute infarct, intracranial hemo rrhage, extra-axial collection, hydrocephalus or mass is identified. The visualized paranasal sinuses and mastoid air cells are clear. No acute osseous or soft tissue abnormality is identified. Impression: No definite acute intracranial abnormality identified. If clinical concern for acute ischemia remains high, consider further evaluation with MRI. Stable atrophy, moderate microangiopathic disease and chronic infarctions of the right frontal and le ft frontoparietal lobes. Reported By:
--- NOTE | 2017-11-02 23:54 | CT ---
CT abdomen and pelvis without contrast Indication: Abdominal pain, altered mental status, nausea, vomiting Technique: Helical CT images of the abdomen and pelvis were obtained without IV contrast. Reformatted images in the coronal and sagittal planes were also generated for review. Comparison: None Findings: Lung bases are clear. Diffuse osteopenia and degenerative changes throughout the spine are noted. There are subacute-chronic appearing mild compression fractures of the T10 and T11 vertebral b odies with approximately 20% height loss. No aggressive osseous lesions are identified. Evaluation for soft tissue pathology is limited without intravenous contrast. Given these limitations , the gallbladder is surgically absent. The unenhanced liver, spleen, pancreas and adrenals are gross ly unremarkable. There is mild atrophy of the left greater than right kidneys. Small bilateral renal cysts are also noted. Bilateral renal calcifications appear vascular in nature. No radiopaque urinary tract stones are otherwise identified and there is no left or right hydroureteronephrosis. There is a small sliding hiatal hernia. There is significant stool burden throughout the colon, carly tible with constipation. The appendix is not identified. There is no bowel inflammation or obstructio n. There is extensive calcification of the aortoiliac system without aneurysm. The urinary bladder is normal. The unenhanced uterus and adnexa are grossly within normal limits. No free air, free fluid o r bulky lymphadenopathy is identified. Impression: No acute abnormality identified to explain patient's symptoms, within the limitations of a noncontras t exam. Constipation, small hiatal hernia, osteopenia, extensive vascular calcifications and additional incid ental findings, as above. Reported By:
[2017-11-03] MEDS ORDERED: ZOFRAN INJ 4 MG VIAL ONE (00:33)
[2017-11-03] MEDS ORDERED: ZOFRAN INJ 4 MG VIAL IVP ONE (00:34)
[2017-11-03 01:19] LABS: BILIRUBIN,URINE NEGATIVE (NEGATIVE); BLOOD/HEMOGLOBIN,URINE 1+ (NEGATIVE); GLUCOSE, URINE NEGATIVE (NEGATIVE); KETONES,URINE NEGATIVE (NEGATIVE); LEUKOCYTE ESTERASE ,URINE 1+ (NEGATIVE); NITRITES,URINE NEGATIVE (NEGATIVE); PROTEIN,URINE 2+ (NEGATIVE); UROBILINOGEN,URINE NORMAL (NORMAL)
--- NOTE | 2017-11-03 01:23 | DR.AMS ---
HPI - Time Seen Time seen: 21:15 - PCP Primary Care Physician: Trevon - HPI Comment HPI Comment: FAMILY REPORT INCREASING WEAKNESS AND AMS FOR FEW DAYS. WORSE TODAY. VOMING TODAY ALSO. NO FEVER OR CONGESTION REPORTED. - Complaint Cheif Complaint Doctors Comments: AMS, NAUSEA, VOMITING. HERE VIA EMS. Chief Complaint:: EMS reports they were called to patient's home with reports of altered mental status, nausea/vomiting. EMS reports altered mental status for two weeks. Family reports nausea and vomiting. Patient is lethargic on arrival; however, responds to verbal stimuli. She is alert and oriented x1. Skin is cool, pale. - Reviewed Nurses Notes Reviewed: Yes - Source History Provided: EMS - Mode of Arrival Mode of Arrival: Stretcher - Timing Onset of Chief Complaint: 10/19/17 Came On: Suddenly - Duration Duration: Constant Duration: Days - Severity Severity: Severe - Context Recent: Nausea, Vomiting History Of: CVA, Seizure - Associated Signs and Symptoms Associated Signs and Symptoms: Generalized Weakness, Headache, Change in Behavior, Confusion PMH - PMH Past Medical History: Yes Past Medical History: Anxiety, Arthritis, COPD, CVA, Depression, Dyslipidemia, GERD, Hypertension, Seizures Past Surgical History: Yes Surgical History: Cholecystectomy - Family History History of Family Medical Conditions: Yes Family Medical History: Diabetes Mellitus, Cancer, MD, Coronary Artery Disease, Heart Failure, Hypertension - Social History Type of Tobacco Use: None Alcohol Use: None Do you use any recreational Drugs:: No Lives With: Family Lives Where: Home - infectious screening In the last 2 months have you had wt loss of >10#?: NO Have you had fever, night sweats or hemotysis?: No Have you traveled outside the country in the last 6 months?: No Isolation: Standard ROS - Review of Systems Constitutional: No Symptoms Reported, Malaise, Weakness, Fatigue Eyes: negative: Eye Pain, Discharge ENTM: negative: Ear Pain, Epistaxis, Throat Swelling Respiratoy: Non-Productive Cough, Short of Breath, Wheezing Cardiovascular: Syncope Gastrointestinal/Abdominal: Abdominal Pain, Vomiting Genitourinary: negative: Hematuria Neurological: Weakness Musculoskeletal: Back Pain, Muscle Pain, Neck Pain Integumentary: Bruises. negative: Juandice Hematologic/Lymphatic: Easy Bruising Endocrine: Flushing All Other Systems: Reviewed and Negative (PER FAMILY, WEAK AND VOMITING.) Unable to Obtain Due To: Altered mental status PE - Vitals Vital Signs: Temp Pulse Pulse Resp BP BP BP 11/03/17 01:00 86 32 H 84/48 11/02/17 23:30 80 21 103/51 11/02/17 23:00 76 22 96/56 11/02/17 22:30 73 17 126/60 11/02/17 22:00 69 18 139/64 11/02/17 21:45 68 19 138/63 11/02/17 21:15 67 21 120/58 11/02/17 21:10 69 18 113/56 11/02/17 21:05 69 19 101/55 11/02/17 21:00 69 20 88/52 11/02/17 20:57 69 20 91/47 11/02/17 20:50 73 28 H 69/50 11/02/17 20:47 70 25 H 73/47 11/02/17 20:45 98.1 F 11/02/17 20:40 96.5 F L 71 18 66/48 06/21/17 11:38 158/84 158/84 10/14/14 08:00 173/74 Pulse Ox 11/03/17 01:00 97 11/02/17 23:30 98 11/02/17 23:00 100 11/02/17 22:30 89 L 11/02/17 22:00 96 11/02/17 21:45 96 11/02/17 21:15 95 11/02/17 21:10 100 11/02/17 21:05 99 11/02/17 21:00 92 L 11/02/17 20:57 100 11/02/17 20:50 100 11/02/17 20:47 100 11/02/17 20:45 11/02/17 20:40 100 06/21/17 11:38 10/14/14 08:00 - General Limitations: No Limitations General Appearance: Alert - Head Head Exam: Normal Inspection Head Exam Physical: Laceration - Eyes Eye exam: Normal Appearance Pupils: Regular, Round: Bilateral - ENT ENT Exam: Normal External Ear Exam External Ear Exam: Normal External Inspection TM/Canal Exam: Bilateral Normal Nose Exam: Normal Nose Exam Mouth Exam: Normal Inspection Throat Exam: Normal Inspection - Neck Neck Exam: Trachea Midline - Chest Chest Inspection: Symmetric Chest Wall Rise - Respiratory Respiratory Exam: Prolonged Expiratory Phase, Respiratory Distress Respiratory Exam: Bilateral Wheezing, Bilateral Rhonchi, Bilateral Crackles, Lower Wheezing, Lower Rhonchi, Lower Crackles - Cardiovascular Cardiovascular Exam: Regular Rate, Normal Rhythm - Extremities Extremities Exam: Edema, Joint Swelling. negative: Calf Tenderness - Back Back Exam: Paraspinal Tenderness - Neurological Neurological Exam: Other (SEMI RESPONSIVE TO PAIN) - Psychological Psychiatric Exam: Flat Affect, Other (SEMI RESPONSIVE.) - Skin Skin Exam: Diaphoresis, Erythema, Pallor, Other (COLD AND CLAMY) MDM - Additional Information Obtained Additional Information Obtained From: Family - Differential Diagnosis Metabolic: Dehydration, Delirium tr., DKA, Hypercalcemia, Hypernatremia, Hypoglycemia, Hyponatremia, Hypoxemia, Post-ictal Structural: Mass Lesion Infectious: Sepsis, UTI Environmental: Hyperthermia, Hypothermia Course - Treatment Treatment: SEE ORDERS. PATIENT HYPOTENSIVE. IV NS BP IMPROVING. NOT SUSTAING THIS, HYPOTENSIOM EVEN WITH FLUID. CONDITION DETERIORATED. SHE WAS PLACE ON PRESSOR AGENT AND INTUBATED. - Reevaluation 1st: Worsened 2nd: Worsened 3rd: Worsened - Consultation Consultation Comments: DR LEAL SURGEON PLACE CENTRALINE IN PATIENT. PATIENT WAS INTUBATED BY RESPIRATORY PERSONEL. - Education/Counseling Education/Counseling: Patient, Family Educated On: Treatment, Diagnosis ROR - Labs Reviewed Result Diagrams: 11/03/17 05:45 11/03/17 04:20 Laboratory: WBC 6.6 X10^3/uL (3.6-10.0) 11/02/17 21:15 RBC 2.69 X10^6/uL (3.5-5.4) L 11/02/17 21:15 Hgb 6.6 g/dL (12.0-16.0) L* 11/03/17 04:19 Hct 20.6 % (36.0-47.0) L 11/03/17 04:19 MCV 95.9 fL (80.0-100.0) 11/02/17 21:15 MCH 31.5 pg (27.0-34.0) 11/02/17 21:15 MCHC 32.9 g/dL (33.0-35.0) L 11/02/17 21:15 RDW 13.4 % (11.6-16.5) 11/02/17 21:15 Plt Count 97 X10^3/uL (150.0-450.0) L 11/02/17 21:15 MPV 9.8 fL (7.4-11.0) 11/02/17 21:15 Neut % 73.1 % (42.0-75.0) 11/02/17 21:15 Lymph % 20.3 % (21.0-51.0) L 11/02/17 21:15 [place] % 5.8 % (0.0-13.0) 11/02/17 21:15 Eos % 0.2 % (0.9-2.9) L 11/02/17 21:15 Baso % 0.6 % (0.2-1.0) 11/02/17 21:15 Neut # 4.8 x10^3/uL (2.2-4.8) 11/02/17 21:15 Lymph # 1.3 X10^3/uL (1.3-2.9) 11/02/17 21:15 [place] # 0.4 x10^3/uL (0.3-0.8) 11/02/17 21:15 Eos # 0.0 x10^3/uL (0.0-0.2) 11/02/17 21:15 Baso # 0.0 X10^3/uL (0.0-0.1) 11/02/17 21:15 Absolute Nucleated RBC 0.1 /100WBC 11/02/17 21:15 Sample Site Rfem 11/03/17 04:04 ABG pH 7.120 (7.35-7.45) L* 11/03/17 04:04 ABG pCO2 30.0 mmHg (35.0-45.0) L 11/03/17 04:04 ABG pO2 119.0 mmHg (80.0-100.0) H 11/03/17 04:04 ABG HCO3 9.8 mmol/L (22-26) L* 11/03/17 04:04 ABG O2 Saturation 97.0 % (90-100) 11/03/17 04:04 ABG Base Excess -18.3 mmol/L (-2.0-2.0) L 11/03/17 04:04 Brian Test N/a 11/03/17 04:04 A-a Gradient 72.0 mmHg 11/03/17 04:04 FiO2 32.000 11/03/17 04:04 Blood Gas Comments [place] well ae 11/03/17 04:04 Sodium 138 mmol/L (136-145) 11/02/17 21:15 Corrected Sodium 141 mmol/L (136-145) 11/02/17 21:15 Potassium 4.9 mmol/L (3.5-5.1) 11/02/17 21:15 Chloride 104 mmol/L (98-107) 11/02/17 21:15 Carbon Dioxide 19.4 mmol/L (21-32) L 11/02/17 21:15 BUN 24 mg/dL (7-18) H 11/02/17 21:15 Creatinine 1.66 mg/dL (0.55-1.02) H 11/02/17 21:15 Est GFR (MDRD) Af Amer 38 (>60) L 11/02/17 21:15 Est GFR (MDRD) Non-Af 31 (>60) L 11/02/17 21:15 Glucose 208 mg/dL (65-99) H 11/02/17 21:15 Lactic Acid 11.9 mmol/L (0.4-2.0) H 11/03/17 04:19 Calcium 7.9 mg/dL (8.5-10.1) L 11/02/17 21:15 Corrected Calcium 9.0 mg/dL (8.5-10.1) 11/02/17 21:15 Total Bilirubin 0.20 mg/dL (0.2-1.0) 11/02/17 21:15 AST 32 Units/L (15-37) 11/02/17 21:15 ALT 20 Units/L (12-78) 11/02/17 21:15 Alkaline Phosphatase 126 Units/L (46-116) H 11/02/17 21:15 Creatine Kinase 63 Units/L (26-192) 11/02/17 21:15 CK-MB (CK-2) 1.6 ng/mL (0-4.0) 11/02/17 21:15 CK/CKMB % Calc 2.5 % (<4) 11/02/17 21:15 Troponin I 0.03 ng/mL (0-1.5) 11/02/17 21:15 Total Protein 5.5 g/dL (6.4-8.2) L 11/02/17 21:15 Albumin 2.6 g/dL (3.4-5.0) L 11/02/17 21:15 Globulin 2.9 g/dL (2.5-4.5) 11/02/17 21:15 Albumin/Globulin Ratio 0.9 Ratio (1.1-2.1) L 11/02/17 21:15 Amylase 58 Units/L (25-115) 11/02/17 21:15 Lipase 233 Units/L (73-393) 11/02/17 21:15 Specimen Type Catherized urine 11/03/17 00:59 Urine Color Yellow (YELLOW) 11/03/17 00:59 Urine Appearance Clear (CLEAR) 11/03/17 00:59 Urine pH 5.0 (5.0 - 8.0) 11/03/17 00:59 Ur Specific [place] 1.010 (1.000-1.030) 11/03/17 00:59 Urine Protein 2+ (NEGATIVE) 11/03/17 00:59 Urine Glucose (UA) Negative (NEGATIVE) 11/03/17 00:59 Urine Ketones Negative (NEGATIVE) 11/03/17 00:59 Urine Occult Blood 1+ (NEGATIVE) 11/03/17 00:59 Urine Nitrite Negative (NEGATIVE) 11/03/17 00:59 Urine Bilirubin Negative (NEGATIVE) 11/03/17 00:59 Urine Urobilinogen Normal (NORMAL) 11/03/17 00:59 Ur Leukocyte Esterase 1+ (NEGATIVE) 11/03/17 00:59 Urine RBC Rare /HPF (NEGATIVE) 11/03/17 00:59 Urine WBC 0-2 /HPF (NEGATIVE) 11/03/17 00:59 Ur Squamous Epith Cells Rare /HPF (NEGATIVE) 11/03/17 00:59 Urine Bacteria Negative /HPF (NEGATIVE) 11/03/17 00:59 Hyaline Casts Few /LPF (NEGATIVE) 11/03/17 00:59 Urine Mucus Few /HPF (NEGATIVE) 11/03/17 00:59 Ur Culture Indicated? No/not indicated 11/03/17 00:59 - XRAY XRAY Interpreted by: Radiologist XRAY Findings: REPORT DISCUSS WITH FAMILY. - EKG Rhythm: NSR (EKG NOTED.) - Diagnosis Discharge Problem: Sepsis with hypotension, Generalized weakness GI bleeding Qualifiers: GI bleed type/associated pathology: unspecified gastrointestinal hemorrhage type Qualified Code(s): K92.2 - Gastrointestinal hemorrhage, unspecified Mental status alteration Qualifiers: Altered mental status type: transient alteration of awareness Qualified Code(s) : R40.4 - Transient alteration of awareness - Discharge Plan Disposition: 09 ADMITTED INPATIENT Condition: Stable - Follow ups/Referrals - Instructions
[2017-11-03 01:36] LABS: APPEARANCE,URINE CLEAR (CLEAR); BACTERIA,URINE NEGATIVE /HPF (NEGATIVE); COLOR,URINE YELLOW (YELLOW); HYALINE CASTS, URINE FEW /LPF (NEGATIVE); MUCUS,URINE FEW /HPF (NEGATIVE); RBC,URINE RARE /HPF (NEGATIVE); SQUAMOUS EPITHELIAL CELL,UR RARE /HPF (NEGATIVE)
[2017-11-03] MEDS ORDERED: NS 1000 ML 1,000 ML IV ONE ×4 (01:40→10:00)
[2017-11-03] MEDS: NS 1000 ML 1,000 ML IV SCH ×2 (02:45→04:32)
[2017-11-03] MEDS ORDERED: DOPAMINE IV PREMIX 400 MG/250 ML 400 MG/250 ML BAG IV PRN (03:20)
[2017-11-03] MEDS ORDERED: DOPAMINE IV PREMIX 400 MG/250 ML 400 MG/250 ML BAG IV ONE (03:20)
[2017-11-03] MEDS ORDERED: LEVOPHED INJ 8 MG in D5W 250 ML IV 242 ML IV PRN (03:38)
[2017-11-03] MEDS ORDERED: LEVOPHED INJ ONE ×2 (03:38→03:39)
[2017-11-03 04:21] LABS: ABG BASE EXCESS -18.3 mmol/L (-2.0-2.0)
[2017-11-03 04:22] LABS: ABG HCO3 9.8 mmol/L (22-26)
[2017-11-03 04:44] LABS: HEMATOCRIT 20.6 % (36.0-47.0)
[2017-11-03 04:49] LABS: HEMOGLOBIN 6.6 g/dL (12.0-16.0)
[2017-11-03] MEDS: ZOSYN VIAL 3.375 GM 3.375 GM in NS 100 ML IV + SPIKE MINIBAG* 100 ML IV SCH ×3 (05:09→09:08)
[2017-11-03] MEDS ORDERED: ZOSYN VIAL 3.375 GM IV ONE (05:14)
[2017-11-03] MEDS ORDERED: VANCOMYCIN HCL 1 GM VIAL 1 GM in D5W 250 ML IV 250 ML IV ONE (05:25)
[2017-11-03] MEDS ORDERED: VANCOMYCIN 1 GM PREMIX (ADDVANTAGE) 250 ML IV ONE (05:26)
[2017-11-03] MEDS ORDERED: NS 250 ML IV 250 ML IV ONE (05:26)
[2017-11-03] MEDS ORDERED: NS 250 ML IV 250 ML IV SCH (05:39)
[2017-11-03 05:53] LABS: ALANINE AMINOTRANSFERASE 28 Units/L (12-78); ALBUMIN 1.8 g/dL (3.4-5.0); ALKALINE PHOSPHATASE 105 Units/L (46-116); ASPARTATE AMINO TRANSFERASE 66 Units/L (15-37); BLOOD UREA NITROGEN 26 mg/dL (7-18); CALCIUM 6.7 mg/dL (8.5-10.1); CHLORIDE 110 mmol/L (98-107); COR CA(FOR HYPOALB) 8.5 mg/dL (8.5-10.1); CREATININE 1.76 mg/dL (0.55-1.02); SODIUM 141 mmol/L (136-145); TOTAL PROTEIN 4.2 g/dL (6.4-8.2); eGFR BLACK RACES 35 (>60); eGFR NON BLACK RACES 29 (>60)
[2017-11-03 05:55] LABS: CARBON DIOXIDE 6.7 mmol/L (21-32)
[2017-11-03] MEDS ORDERED: MAXIPIME 1 GM IV PREMIX 1 GM/50 ML BAG IV SCH (06:00)
[2017-11-03] MEDS ORDERED: PHARMACY CONSULT - VANCOMYCIN XX SCH (06:00)
[2017-11-03] MEDS ORDERED: SODIUM BICARBONATE 8.4% INJ ADULT IVP ONE (06:10)
[2017-11-03] MEDS ORDERED: SODIUM BICARBONATE 8.4% INJ ADULT ONE (06:12)
[2017-11-03 06:17] LABS: AMYLASE 92 Units/L (25-115); LIPASE 187 Units/L (73-393)
[2017-11-03 06:20] LABS: BASOPHILS % (AUTO) 0.2 % (0.2-1.0); EOSINOPHILS % (AUTO) 0.1 % (0.9-2.9); HEMOGLOBIN 7.3 g/dL (12.0-16.0); LYMPHOCYTES # (AUTO) 1.2 X10^3/uL (1.3-2.9); MEAN CORPUSCULAR HEMOGLOBIN 31.7 pg (27.0-34.0); MEAN CORPUSCULAR HGB CONC 31.9 g/dL (33.0-35.0); MEAN CORPUSCULAR VOLUME 99.2 fL (80.0-100.0); MONOCYTES # (AUTO) 0.6 x10^3/uL (0.3-0.8); MONOCYTES % (AUTO) 6.9 % (0.0-13.0); NEUTROPHILS # (AUTO) 7.5 x10^3/uL (2.2-4.8); NEUTROPHILS % (AUTO) 79.8 % (42.0-75.0); PLATELET COUNT 93 X10^3/uL (150.0-450.0); RED BLOOD COUNT 2.32 X10^6/uL (3.5-5.4); WHITE BLOOD COUNT 9.4 X10^3/uL (3.6-10.0)
[2017-11-03 06:52] LABS: CKMB % 4.9 % (<4); TROPONIN I 0.15 ng/mL (0-1.5)
[2017-11-03 06:55] LABS: CREATINE KINASE MB 4.2 ng/mL (0-4.0)
[2017-11-03] MEDS ORDERED: XYLOCAINE 1 % (PLAIN) ONE (07:26)
[2017-11-03] MEDS ORDERED: NS 1000 ML 1,000 ML ONE ×5 (07:39→09:56)
--- NOTE | 2017-11-03 08:05 | RAD ---
HISTORY: ET tube placement Study: Chest AP portable Comparison: 11/02/2017 9:51 p.m. Findings: There is an endotracheal tube in good position above the jorge. There is nasogastric tube with its t ip within the stomach. The heart is within normal limits in size. The michela are normal. The lung field s are clear. The bony thorax is unremarkable. IMPRESSION: ET tube in good position Nasogastric tube within the stomach The lungs clear Reported By:
[2017-11-03 08:38] LABS: ABG BASE EXCESS -21.5 mmol/L (-2.0-2.0)
[2017-11-03 08:39] LABS: ABG ALLEN TEST POS; ABG HCO3 7.7 mmol/L (22-26)
[2017-11-03] MEDS ORDERED: VANCOMYCIN HCL 1 GM VIAL 1 GM in NS 250 ML IV 250 ML IV SCH (09:00)
--- NOTE | 2017-11-03 09:59 | RAD ---
HISTORY: Central line placement. Study: Portable chest. Comparison: Chest x-ray dated same day at 7:57 a.m. Findings: Stable appearance of endotracheal and nasogastric tubes. There is a left subclavian central venous ca theter whose tip projects over the expected area of the cavoatrial junction. The cardiac silhouette i s unremarkable. Lung aeration appears unchanged. No obvious pneumothorax. The bony thorax is unrema rkable. IMPRESSION: 1. Tubes and lines as above. 2. No significant change in lung aeration. Reported By:
[2017-11-03] MEDS ORDERED: ALBUMIN HUMAN 25%- 100ML 100 ML IV SCH (12:00)
[2017-11-03 12:39] LABS: CKMB % 2.9 % (<4); TROPONIN I 0.66 ng/mL (0-1.5)
[2017-11-03 12:45] LABS: CREATINE KINASE MB 11.7 ng/mL (0-4.0)
[2017-11-03 16:44] VITALS: BP 59/23
== END 2017-11-03 11:58 | disposition expired | DRG 315 ==
LOC: ER 20:37 → OBSVTOIN 11-03 01:18 → MED/SURG 11-03 01:18 → ICU 11-03 08:35
PROVIDERS: ADMIT Internal Medicine; ATTEND Internal Medicine
PROC: 02HV33Z Insertion of Infusion Device into Superior Vena Cava, Percutaneous Approach (ICD-10-PCS; principal; 2017-11-03)
PROC: B518ZZA Fluoroscopy of Superior Vena Cava, Guidance (ICD-10-PCS; 2017-11-03)
PROC: 0BH17EZ Insertion of Endotracheal Airway into Trachea, Via Natural or Artificial Opening (ICD-10-PCS; 2017-11-03)
PROC: 5A1935Z Respiratory Ventilation, Less than 24 Consecutive Hours (ICD-10-PCS; 2017-11-03)
PROC: 30233N1 Transfusion of Nonautologous Red Blood Cells into Peripheral Vein, Percutaneous Approach (ICD-10-PCS; 2017-11-03)
DX: I95.89 Other hypotension (principal); R40.4 Transient alteration of awareness; K92.2 Gastrointestinal hemorrhage, unspecified; R10.84 Generalized abdominal pain; R53.1 Weakness; R11.2 Nausea with vomiting, unspecified; J44.9 Chronic obstructive pulmonary disease, unspecified; F32.89 Other specified depressive episodes; E78.2 Mixed hyperlipidemia; K21.9 Gastro-esophageal reflux disease without esophagitis; I10 Essential (primary) hypertension; G40.89 Other seizures; F41.8 Other specified anxiety disorders; R94.31 Abnormal electrocardiogram [ECG] [EKG]; R79.1 Abnormal coagulation profile; I46.9 Cardiac arrest, cause unspecified; R55 Syncope and collapse; I87.2 Venous insufficiency (chronic) (peripheral)
CPT/HCPCS: 31500; 36415; 36430; 36600; 70450; 71045; 74176; 80053; 81001; 82150; 82533; 82550; 82553; 82803; 83605; 83690; 83735; 84100; 84484; 85014; 85018; 85025; 85610; 85730; 86850; 86900; 86901; 86922; 87040; 87070; 87205; 93005; 94002; 99284; A4222; A4618; P9016; J1265; J2001; J2405; J2543; J3370; J3490